=== PATIENT | female | born 1955 | race Caucasian/White ===

== ENCOUNTER 2017-05-31 18:01 | Inpatient (IN) | payer OTHER ==
--- OUTSIDE RECORDS SUMMARY | 2017-05-31 18:03 | XMS REPORT | Clinical Summary ---
:1955 Author Organization [facility] Address [address] [place] [address] Phone Care Team Providers Name Role Phone Unavailable Primary Care Provider Unavailable Allergies Active Allergy Reactions Severity Noted Date Comments Salicylates 08/22/2014 Acetaminophen Other (See Comments) 03/28/2017 toxicity Current Medications Prescription Sig. Disp. Refills Start Date End Date Status pantoprazole Take 40 mg by Active (PROTONIX) 40 MG mouth daily. tablet zolpidem (AMBIEN) Take 10 mg by Active 10 mg tablet mouth every night as needed for Insomnia . methadone Take 2.5 mg by Active (DOLOPHINE) 5 MG mouth every 6 tablet (six) hours . clonazePAM Take 1 tablet 30 tablet 0 03/29/2017 Active (KLONOPIN) 0.5 MG (0.5 mg total) tablet by mouth daily as needed for Anxiety. Max Daily Amount: 0.5 mg gabapentin Take 600 mg by 03/29/2017 Discontinued (NEURONTIN) 600 MG mouth 2 (two) tablet times daily. divalproex Take 125 mg by 03/29/2017 Discontinued (DEPAKOTE) 125 MG mouth 2 (two) EC tablet times daily. citalopram (CELEXA) Take 1 tablet 30 tablet 1 10/18/2015 10/17/2016 20 MG tablet (20 mg total) by mouth daily. clonazePAM Take 2 mg by 03/29/2017 Discontinued (KLONOPIN) 2 MG mouth 2 (two) tablet times daily as needed for Anxiety. Active Problems Problem Noted Date Acetaminophen toxicity 03/28/2017 Abnormal liver enzymes 03/28/2017 Acute cystitis without hematuria 03/28/2017 Abdominal pain, RUQ 01/26/2016 Anemia 01/26/2016 UTI (urinary tract infection) 01/26/2016 Colon cancer (HCC) Acid reflux Depression Encounters Date Type Specialty Care Team Description 04/03/2017 Telephone Hepatology Criselda Jones Results MD Sunita MPH 03/28/2017 - Hospital Encounter General Internal Tarsha Aguilera Abnormal liver 03/29/2017 Medicine MD Amalia enzymes;Toxic Sundeep Pinzon, effect of Frank Bill Allison accidental or MD April unintentional, initial encounter;Malignant neoplasm of colon, unspecified part of colon (HCC);Chronic pain syndrome;Abnormal liver function tests;Coagulopathy (HCC);Thrombocytope ivan (HCC);Immunity status testing;Other chronic pain;Immune to hepatitis A after 05/30/2016 Family History Medical History Relation Name Comments Cancer Mother Relation Name Status Comments Mother Social History Tobacco Use Types Packs/Day Years Used Date Never Smoker Smokeless Tobacco: Never Used Alcohol Use Drinks/Week oz/Week Comments No Sex Assigned at Date Recorded Not on file Last Filed Vital Signs Vital Sign Reading Time Taken Blood Pressure 112/53 03/29/2017 11:23 AM INSURANCE INSTRUCTOR Pulse 96 03/29/2017 11:23 AM INSURANCE INSTRUCTOR Temperature 36.6 C (97.9 F) 03/29/2017 11:23 AM INSURANCE INSTRUCTOR Respiratory Rate 18 03/29/2017 11:23 AM INSURANCE INSTRUCTOR Oxygen Saturation 97% 03/29/2017 11:23 AM INSURANCE INSTRUCTOR Inhaled Oxygen Concentration - - Weight 50.5 kg (111 lb 5.3 oz) 03/28/2017 1:33 AM INSURANCE INSTRUCTOR Height 160 cm (5' 3") 03/28/2017 1:33 AM INSURANCE INSTRUCTOR Body Mass Index 19.72 03/28/2017 1:33 AM INSURANCE INSTRUCTOR Plan of Treatment Health Maintenance Due Date Last Done Comments INFLUENZA VACCINE 11/25/2016 Results Calcium, Ionized (03/29/2017 7:56 AM)Only the most recent of2 resultswithin the time period is included. Component Value Ref Range Calcium, Ion 1.12 1.12 - 1.27 mmol/L pH, Blood 7.33 Specimen Performing Laboratory Blood - Line, Venous [facility] [address] [address] CBC with platelet count + automated diff (03/29/2017 7:56 AM)Only the most recent of3 resultswithin the time period is included. Component Value Ref Range WBC 3.7 3.5 - 10.5 K/L RBC 3.68 (L) 3.93 - 5.22 M/L Hemoglobin 9.6 (L) 11.2 - 15.7 GM/DL Hematocrit 29.9 (L) 34.1 - 44.9 % MCV 81.3 79.4 - 94.8 fL MCH 26.1 25.6 - 32.2 pg MCHC 32.1 (L) 32.2 - 35.5 GM/DL RDW 15.1 (H) 11.7 - 14.4 % Platelets 129 (L) 150 - 450 K/CU MM MPV 10.4 9.4 - 12.3 fL nRBC 0 0 - 0 /100 WBC % Neutros 66 % % Lymphs 17 % % Monos 10 % % Eos 6 % % Baso 1 % # Neutros 2.43 1.56 - 6.13 K/L # Lymphs 0.62 (L) 1.18 - 3.74 K/L # Monos 0.35 0.24 - 0.36 K/L # Eos 0.22 0.04 - 0.36 K/L # Baso 0.02 0.01 - 0.08 K/L Immature Granulocytes-Relative 1 0 - 1 % Specimen Performing Laboratory Blood - Line, Venous [address] [address] Prothrombin time/INR (03/29/2017 7:56 AM)Only the most recent of3 resultswithin the time period is included. Component Value Ref Range Protime 18.4 (H) 11.7 - 14.7 seconds INR 1.5 <=5.9 Specimen Performing Laboratory Blood - Line, Venous [address] [address] Narrative RECOMMENDED COUMADIN/WARFARIN INR THERAPY RANGES STANDARD DOSE: 2.0 - 3.0 Includes: PROPHYLAXIS for venous thrombosis, systemic embolization; TREATMENT for venous thrombosis and/or pulmonary embolus. HIGH RISK: Target INR is 2.5-3.5 for patients with mechanical heart valves. CBC with platelet count + automated diff (03/29/2017 7:56 AM)Only the most recent of3 resultswithin the time period is included. Specimen Performing Laboratory Blood Narrative The following orders were created for panel order CBC with platelet count + automated diff. Procedure Abnormality Status --------- ------ CBC with platelet count ...[[id number]]AbnormalFinal result Please view results for these tests on the individual orders. Phosphorus (03/29/2017 7:56 AM)Only the most recent of3 resultswithin the time period is included. Component Value Ref Range Phosphorus 2.4 2.3 - 4.7 mg/dL Specimen Performing Laboratory Blood - Line, Venous [address] [address] Magnesium (03/29/2017 7:56 AM)Only the most recent of2 resultswithin the time period is included. Component Value Ref Range Magnesium 1.7 1.6 - 2.6 mg/dL Specimen Performing Laboratory Blood - Line, Venous [address] [address] Hepatic function panel (03/29/2017 7:56 AM)Only the most recent of3 resultswithin the time period is included. Component Value Ref Range Protein, Total 5.1 (L) 6.0 - 8.3 gm/dL Albumin 2.8 (L) 3.5 - 5.0 g/dL Total Bilirubin 2.6 (H) 0.2 - 1.2 mg/dL Bilirubin, Direct 1.6 (H) 0.1 - 0.5 mg/dL Alkaline Phosphatase 100 40 - 150 U/L AST 274 (H) 5 - 34 U/L ALT 3184 (H) 6 - 55 U/L Specimen Performing Laboratory Blood - Line, Venous [address] [address] Basic Metabolic Panel (03/29/2017 7:56 AM)Only the most recent of3 resultswithin the time period is included. Component Value Ref Range Sodium 142 136 - 145 meq/L Potassium 3.3 (L) 3.5 - 5.1 meq/L Chloride 115 (H) 98 - 107 meq/L CO2 21 (L) 22 - 29 meq/L BUN 7 7 - 21 mg/dL Creatinine 0.61 0.57 - 1.25 mg/dL Glucose 97 70 - 105 mg/dL Calcium 8.1 (L) 8.4 - 10.2 mg/dL EGFR 99Comment: ESTIMATED GFR IS NOT ACCURATE mL/min/1.73 sq m CREATININE CLEARANCE IN PREDICTING GLOMERULAR FILTRATION RATE. ESTIMATED GFR IS NOT APPLICABLE FOR DIALYSIS PATIENTS. Specimen Performing Laboratory Blood - Line, Venous [address] [address] Varicella zoster PCR, qualitative (03/29/2017 7:18 AM) Component Value Ref Range Source-Body Site WHOLE BLOOD VZV DNA,Qual.PCR NOT DETECTED Comment: REFERENCE RANGE: NOT DETECTED This test was developed and its analytical performance characteristics have been determined by [facility]. It has not been cleared or approved by FDA. This assay has been validated pursuant to the CLIA regulations and is used for clinical purposes. Specimen Performing Laboratory Blood - Vein [facility] [address] [place] [address] Narrative Performing Lab *[facility] [address] [place] [address] H Yrn Mccarthy MD Ammonia (03/29/2017 5:20 AM) Component Value Ref Range Ammonia 75 (H) 18 - 72 mol/L Specimen Performing Laboratory Blood [address] [address] Blood culture (03/28/2017 11:01 PM)Only the most recent of2 resultswithin the time period is included. Component Value Ref Range Result No growth in 5 days Specimen Performing Laboratory Blood - Arm, Right [address] [address] US doppler (03/28/2017 10:35 PM) Specimen Performing Laboratory GE RIS Narrative FINAL REPORT U/S, ABDOMINAL, COMPLETE INDICATION: ELEVATED LIVER ENZYMES COMPARISON: None TECHNIQUE: Real-time ruelas-scale transabdominal and color and spectral Doppler ultrasound. FINDINGS: Visualized portion of the pancreas is normal. Cirrhotic liver. No discrete liver mass. Normal caliber CBD at 4 mm. Gallbladder wall thickening and pericholecystic fluid, nonspecific in the setting of portal hypertension. Visualized portions of the kidneys are unremarkable without obvious hydronephrosis. Spleen is enlarged at 13 cm. Visualized portion of the aorta is unremarkable. Color and Spectral imaging: Portal veins demonstrate normal directional flow and waveform. Hepatic artery demonstrate normal directional flow and waveform. Hepatic veins and IVC appear patent and unremarkable. Splenic vein demonstrates normal directional flow and waveform. IMPRESSION: Cirrhosis and portal hypertension.. Signed: Miguel Plaza MD Report Verified Date/Time:04/03/2017 09:20:30 Reading Location: [facility] B1 C013X Ortho Consult Reading Room Procedure Note Interface, External Ris In - 04/03/2017 9:20 AM INSURANCE INSTRUCTOR FINAL REPORT U/S, ABDOMINAL, COMPLETE INDICATION: ELEVATED LIVER ENZYMES COMPARISON: None TECHNIQUE: Real-time ruelas-scale transabdominal and color and spectral Doppler ultrasound. FINDINGS: Visualized portion of the pancreas is normal. Cirrhotic liver. No discrete liver mass. Normal caliber CBD at 4 mm. Gallbladder wall thickening and pericholecystic fluid, nonspecific in the setting of portal hypertension. Visualized portions of the kidneys are unremarkable without obvious hydronephrosis. Spleen is enlarged at 13 cm. Visualized portion of the aorta is unremarkable. Color and Spectral imaging: Portal veins demonstrate normal directional flow and waveform. Hepatic artery demonstrate normal directional flow and waveform. Hepatic veins and IVC appear patent and unremarkable. Splenic vein demonstrates normal directional flow and waveform. IMPRESSION: Cirrhosis and portal hypertension.. Signed: Miguel Plaza MD Report Verified Date/Time: 04/03/2017 09:20:30 Reading Location: [facility] C013X Ortho Consult Reading Room abdomen complete (03/28/2017 10:35 PM) Specimen Performing Laboratory [facility] Narrative FINAL REPORT U/S, ABDOMINAL, COMPLETE INDICATION: ELEVATED LIVER ENZYMES COMPARISON: None TECHNIQUE: Real-time ruelas-scale transabdominal and color and spectral Doppler ultrasound. FINDINGS: Visualized portion of the pancreas is normal. Cirrhotic liver. No discrete liver mass. Normal caliber CBD at 4 mm. Gallbladder wall thickening and pericholecystic fluid, nonspecific in the setting of portal hypertension. Visualized portions of the kidneys are unremarkable without obvious hydronephrosis. Spleen is enlarged at 13 cm. Visualized portion of the aorta is unremarkable. Color and Spectral imaging: Portal veins demonstrate normal directional flow and waveform. Hepatic artery demonstrate normal directional flow and waveform. Hepatic veins and IVC appear patent and unremarkable. Splenic vein demonstrates normal directional flow and waveform. IMPRESSION: Cirrhosis and portal hypertension.. Signed: Miguel Plaza MD Report Verified Date/Time:03/29/2017 00:32:39 Reading Location: [facility] B1 C013X Ortho Consult Reading Room Procedure Note Interface, External Ris In - 03/29/2017 12:34 AM INSURANCE INSTRUCTOR FINAL REPORT U/S, ABDOMINAL, COMPLETE INDICATION: ELEVATED LIVER ENZYMES COMPARISON: None TECHNIQUE: Real-time ruelas-scale transabdominal and color and spectral Doppler ultrasound. FINDINGS: Visualized portion of the pancreas is normal. Cirrhotic liver. No discrete liver mass. Normal caliber CBD at 4 mm. Gallbladder wall thickening and pericholecystic fluid, nonspecific in the setting of portal hypertension. Visualized portions of the kidneys are unremarkable without obvious hydronephrosis. Spleen is enlarged at 13 cm. Visualized portion of the aorta is unremarkable. Color and Spectral imaging: Portal veins demonstrate normal directional flow and waveform. Hepatic artery demonstrate normal directional flow and waveform. Hepatic veins and IVC appear patent and unremarkable. Splenic vein demonstrates normal directional flow and waveform. IMPRESSION: Cirrhosis and portal hypertension.. Signed: Miguel Plaza MD Report Verified Date/Time: 03/29/2017 00:32:39 Reading Location: [facility] B1 C013X Ortho Consult Reading Room Drug screen, urine, transplant (03/28/2017 6:49 PM) Specimen Performing Laboratory Urine - Urine, Urostomy [facility] [id number] Rapid drug screen, urine (03/28/2017 6:49 PM) Component Value Ref Range Barbiturate Screen Negative Negative Benzodiazepine Screen Negative Negative Cocaine (Metab.) Screen Negative Negative Methadone Screen Negative Negative Opiate Screen Negative Negative Cannabinoid Screen Negative Negative Amph/Methamph Screen Negative Negative Phencyclidine Screen Negative Negative Oxycodone Screen Negative Negative Specimen Performing Laboratory Urine - Urine, Urostomy [address] [address] Narrative DRUGCUTOFF CONC. Cocaine 300 ng/mL Pvbieavurwo94 ng/mL Sjhywzjnjxbiur741 ng/mL Barbiturate 200 ng/mL Ffgabhfqzfgod51 ng/mL Zprcpj081 ng/mL Methadone 300 ng/mL Amphetamine/ 1000 ng/mL Methamphetamine Oxycodone 300 ng/mL This assay provides an unconfirmed qualitative test result for the clinical management of patients in emergency situations. Chain of custody not maintained. Some lvnm-gnj-vrjlkkr medications, as well as adulterants, may cause inaccurate results. Clinical correlation should be applied. A more comprehensive drug screen or confirmation of a detected drug may be performed upon request. Anti-Nuclear Antibody (UDAY) (03/28/2017 4:24 PM) Component Value Ref Range UDAY Negative Negative Specimen Performing Laboratory Blood [facility] [address] [address] Alpha-1 antitrypsin Mutation Analysis (03/28/2017 4:21 PM) Component Value Ref Range A1 Antitrypsin Mut SEE BELOW Comment: RESULT: NO MUTATION DETECTED Interpretation: DNA testing indicates that this individual is negative for the PI*Z and PI*S alleles in the qjybt-2-qofvudedxkw (PI) gene (genotype PI*M/PI*M). This negative result does not rule out the presence of other mutations within the PI gene or other causes of zcskr-0-ukbdysamqgw deficiency. Therefore, these results should be interpreted in the context of the individual's clinical presentation, and other laboratory tests such as measurement of serum peuoh-9-pywmwcrqdou levels. Laboratory results and submitted clinical information reviewed by Jose Juan Mercer, Ph.D., [facility]. Spftv-4-wfpqqytpvyl deficiency is a relatively common autosomal recessive condition. The two most common deficiency alleles in the hskrk-5-fesnyzvooyq gene (protease inhibitor locus, PI) are designated PI*Z and PI*S, and the normal allele is designated PI*M. The PI*Z/PI*Z, PI*S/PI*Z, and PI*S/PI*S genotypes associated with decreased serum PI levels that are equivalent to approximately 10-20%, 35-40%, and 50-60% of normal, respectively. The PI*Z/PI*Z and PI*S/PI*Z genotypes are reported to be associated with an increased risk of liver disease in childhood, and chronic obstructive pulmonary disease (COPD) and emphysema in adult life. The PI*M/PI*Z, and PI*M/PI*S genotypes are also associated with decreased serum PI levels but these levels, and the PI levels associated with the PI*S/PI*S genotype, are apparently adequate to protect the lungs in the vast majority of individuals. Individuals with the PI*M/PI*Z genotype may have decreased pulmonary function, and may be at increased risk for COPD, especially if they smoke. It should be noted that serum wpdkb-0-hkefspeznpp levels can be induced by a wide variety of conditions that include , infection, numerous inflammatory conditions, cancer, and liver disease. Levels of xqumg-6-jhfowpqqygp may be reduced by other conditions. Therefore, immunological and functional determinations of serum shmul-5-xgfmdtugfaz levels may not correlate with the individual's PI genotype. The PI*Z, PI*S, and PI*M alleles are detected by multiplex polymerase chain reaction (PCR) amplification of specific regions of the PI gene, followed by restriction enzyme digestion and capillary electrophoresis. This assay does not test for the presence of other mutations within the rhteo-9-sngmdnfasbm gene or non-genetic causes of gslok-7-czkyuepajmp deficiency. Since genetic variation and other factors can affect the accuracy of direct mutation testing, these results should be interpreted in light of clinical and familial data. This test was developed and its analytical performance characteristics have been determined by [facility]. It has not been cleared or approved by FDA. This assay has been validated pursuant to the CLIA regulations and is used for clinical purposes. Clinical Indication NOT GIVEN Referring Physician NOT GIVEN Specimen Performing Laboratory Blood [facility] [address] [address] Narrative Performing Lab [facility] [address] [address] Yrn Bear MD, PhD Fibrinogen (03/28/2017 4:21 PM)Only the most recent of2 resultswithin the time period is included. Component Value Ref Range Fibrinogen 297 225 - 434 mg/dl Specimen Performing Laboratory Blood [address] [address] Factor 5 activity (bleeding risk) (03/28/2017 4:21 PM) Component Value Ref Range Factor V Activity 42.0 (L) 60.0 - 150.0 % Specimen Performing Laboratory Blood [address] [address] Varicella zoster antibody, IgM (03/28/2017 4:21 PM) Component Value Ref Range VZV Ab IgM, EIA 0.38 Comment: Reference range: < or=0.90 Interpretive criteria: 0.00-0.90 Negative 0.91-1.09 Equivocal > or=1.10 Positive Results from any one IgM assay should not be used as a sole determinant of a current or recent infection. Because an IgM test can yield false positive results and low levels of IgM antibody may persist for more than 12 months post infection, reliance on a single test result could be misleading. If an acute infection is suspected, consider obtaining a new specimen and submit for both IgG and IgM testing in two or more weeks. Specimen Performing Laboratory Blood [facility] [address] [address] Narrative Performing Lab *[facility] [address] [place] [phone] Avelino Mccarthy MD Gamma Glutamyl Transferase (GGT) (03/28/2017 4:21 PM) Component Value Ref Range GGT 85 (H) 9 - 64 U/L Specimen Performing Laboratory Blood [address] [address] HSV PCR (03/28/2017 4:20 PM) Component Value Ref Range Scan Result Specimen Performing Laboratory Blood - Line, Venous [facility] [address] [place] [address] EBV Viral Load (03/28/2017 4:19 PM) Component Value Ref Range EBV Viral Load Negative or below the linear range of the assay (<500 copies/mL) Specimen Performing Laboratory Blood [address] [address] Narrative This assay was performed by real-time PCR for the detection of the Tomy- Warren virus (EBV) gene EBNA-1.The test is composed of (1) DNA extraction from patient specimen, and (2) real-time PCR amplification and detection with EBNA-1- specific primers and probes. A well-conserved region of the EBNA-1 gene is targeted, along with an internal control sequence used to confirm PCR amplification. Asymptomatic carriers and viral genetic variation, among other factors, can affect the accuracy of nucleic acid testing; therefore, results should be interpreted in light of clinical data. This test was developed and its performance characteristics determined by the [facility] Pathology Department, Section of Molecular Pathology. It has not been cleared or approved by the U.S. Food and Drug Administration (FDA), since FDA approval is not required for clinical use of the test. Validation was done as required by The Clinical Laboratory Improvement Amendments of 1988. CMV PCR, quantitative (03/28/2017 4:19 PM) Component Value Ref Range CMV DNA Viral Load Negative or below the linear range of the assay (<375 copies/mL) Specimen Performing Laboratory Blood [address] Cytomegalovirus (CMV) infection can cause significant disease in immunosuppressed patients. However, it is common for CMV to manifest as a limited infection which is of no clinical significance in immunosuppressed patients or in healthy individuals. Viral load measurements are helpful to identify clinical CMV infection and to guide the pre-emptive management of antiviral therapy.For treatment of CMV infection due to reactivation in transplant recipients, a threshold between 4,000 and 5, 000 copies/mL is suggested.For treatment of primary CMV infection, a lower threshold can be used. CMV infection may also be monitored using weekly serial measurements. Serial measurements of CMV DNA viral load can be evaluated by identifying a 10-fold change, as well as assessing the CMV DNA viral load and the clinical context for each patient. The plasma CMV DNA viral load was detected using quantitative polymerase chain reaction and fluorescent monitoring of a specific hybridized probe. Genetic variation and other factors can affect the accuracy of nucleic acid testing. Therefore, the results should be interpreted in light of clinical data. A negative result may not exclude the presence of CMV disease. This test was developed and its performance characteristics determined by the [facility] Pathology Department, Section of Molecular Pathology. It has not been cleared or approved by the U.S. Food and Drug Administration (FDA), since FDA approval is not required for clinical use of the test. Validation was done as required by The Clinical Laboratory Improvement Amendments of 1988. Hepatitis C PCR, Quantitative (03/28/2017 4:19 PM) Component Value Ref Range HCV PCR, Quantitative HCV RNA not detected HCV RNA not detected Specimen Performing Laboratory Blood [address] [address] [facility] This test uses a Real-Time Polymerase Chain Reaction (RT-PCR) methodology and was performed using JUNG Ampliprep/JUNG TaqMan HCV test kit version 2.0 ( [employer] Reportable range for this assay is 15 - 100,000,000 IU per mL (1.18 - 8.00 Log IU/mL). This test uses a Real-Time Polymerase Chain Reaction (RT-PCR) methodology and was performed using JUNG Ampliprep/JUNG TaqMan HCV test kit version 2.0 ( [employer] Reportable range for this assay is 15 - 100,000,000 IU per mL (1.18 - 8.00 Log IU/mL). Anti-Mitochondrial Ab, reflex to titer (03/28/2017 4:17 PM) Component Value Ref Range Scan Result Specimen Performing Laboratory Blood - Central Venous Line [facility] [id number] [place] [address] HIV-1 Antigen with HIV-1/2 Antibody (03/28/2017 4:17 PM) Component Value Ref Range HIV-1 Antigen with HIV 1&2 Antibody Nonreactive Nonreactive Specimen Performing Laboratory Blood - Central Venous Line [address] [address] Hepatitis B Panel (03/28/2017 4:17 PM) Component Value Ref Range Hep B Core Total Ab Nonreactive Nonreactive Hep B S Ab <8.0 <8.0 mIU/mL hepatitis B Surface Ag Nonreactive Nonreactive Specimen Performing Laboratory Blood - Central Venous Line [address] [address] Hepatitis A Panel (03/28/2017 4:17 PM) Component Value Ref Range Hep A IgM Nonreactive Nonreactive Hep A IgG Reactive (A) Nonreactive Specimen Performing Laboratory Blood - Central Venous Line [address] [address] Hepatitis C antibody (03/28/2017 4:17 PM)Only the most recent of2 resultswithin the time period is included. Component Value Ref Range Hepatitis C Ab Nonreactive Nonreactive Specimen Performing Laboratory Blood - Central Venous Line [address] [address] Cytomegalovirus antibody, IgM (03/28/2017 4:17 PM) Component Value Ref Range CMV IgM Negative Specimen Performing Laboratory Blood - Central Venous Line [facility] [address] [place] [address] Actin (Smooth Muscle) Antibody, IgG (03/28/2017 4:17 PM) Component Value Ref Range Anti-Smooth Muscle Ab <20 See Note: U Comment: Reference Range: <20 NEGATIVE > OR=20 POSITIVE Antibodies recognizing actin are the main component of smooth muscle antibodies associated with autoimmune liver disease. Actin antibodies are found in approximately 75% of patients with autoimmune hepatitis (AIH) type 1, approximately 65% of patients with autoimmune cholangitis, approximately 30% of patients with primary biliary cirrhosis, and approximately 2% of healthy people. High values are closely correlated with AIH type 1. Specimen Performing Laboratory Blood - Central Venous Line [facility] [address] [address] Narrative Performing Lab [facility] [address] [address] Yrn Bear MD, PhD Ceruloplasmin (03/28/2017 4:17 PM) Component Value Ref Range Ceruloplasmin 21 18 - 53 mg/dL Comment: Adults:Males: 18-36 mg/dL Females: 18-53 mg/dL Pediatrics:Males (mg/dL)Females (mg/dL) 0-30 Days 8-25 3-28 31 Days-11 Month -15-43 1-3 [id number] 4-6 [id number] 7-9 [id number] 10-12 [id number] 13-15 [id number] 16-18 [id number] The pediatric ranges are derived from the following criteria: Fantasma ROBERTSON, Trae HENRY, Daylin Pool et al Pediatric reference ranges for [id number] and ceruloplasmin. Clin. Chem 1997; 43:S1999 Pediatric Reference Ranges, 2nd., [place] Fantasmaet al. editors. [employer], [place], [place] 1997. Specimen Performing Laboratory Blood - Central Venous Line [facility] [address] [place] [address] Narrative Performing Lab *SPL [facility], [address] [place] [address] Yrn Bear MD, PhD Herpes virus antibody, IgM (03/28/2017 4:17 PM) Component Value Ref Range Herpes Virus IGM Negative Specimen Performing Laboratory Blood - Central Venous Line [address] [address] EBV-VCA antibody, IgM (03/28/2017 4:17 PM) Component Value Ref Range EBV VCA IgM Negative Specimen Performing Laboratory Blood - Central Venous Line [address] [address] EBV-VCA antibody, IgG (03/28/2017 4:17 PM) Component Value Ref Range EBV VCA IgG Positive Specimen Performing Laboratory Blood - Central Venous Line [address] [address] Herpes virus antibody, IgG (03/28/2017 4:17 PM) Component Value Ref Range Herpes Virus IGG Positive Specimen Performing Laboratory Blood - Central Venous Line [address] [address] Narrative HSV IGG 1=POSITIVE HSV IGG 2=POSITIVE Cytomegalovirus antibody, IgG (03/28/2017 4:17 PM) Component Value Ref Range CMV IgG Positive Specimen Performing Laboratory Blood - Central Venous Line [address] [address] Varicella zoster antibody, IgG (03/28/2017 4:17 PM) Component Value Ref Range Varicella IgG 1.6 Al Specimen Performing Laboratory Blood - Central Venous Line [address] [address] Narrative VARICELLA ZOSTER RESULT INTERPRETATIONS: <=0.8 AlNonreactive:Presumed non-immune to VZV 0.9-1.0 AlEquivocal >=1.1 AlReactive:Presumed immune to VZV Haptoglobin (03/28/2017 4:17 PM) Component Value Ref Range Haptoglobin 49 14 - 258 mg/dL Specimen Performing Laboratory Blood - Central Venous Line [address] [address] Immunoglobulin G (IgG) (03/28/2017 4:17 PM) Component Value Ref Range IgG 896 540 - 1822 mg/dL Specimen Performing Laboratory Blood - Central Venous Line [address] [address] Ethanol (03/28/2017 4:17 PM) Component Value Ref Range Ethanol Lvl <10 <=10 mg/dL Specimen Performing Laboratory Blood - Central Venous Line [address] [address] Salicylate level (03/28/2017 4:17 PM) Component Value Ref Range Salicylate Lvl <5.0 (L) 15.0 - 30.0 mg/dL Specimen Performing Laboratory Blood - Central Venous Line [address] [address] Narrative Therapeutic Range: 15.0-30.0 mg/dL Toxic: >30.0 mg/dL Lethal:>70.0 mg/dL Urinalysis w/Microscopic + Reflex to Culture (03/28/2017 6:54 AM) Component Value Ref Range Color, UA Yellow Clarity, UA Hazy Specific [place], UA 1.010 1.001 - 1.035 pH, UA 6.5 5.0 - 8.0 Protein, UA 30 mg/dL (A) Negative Glucose, UA Negative Negative Ketones, UA Negative Negative Bilirubin, UA Negative Negative Blood, UA Negative Negative Nitrite, UA Negative Negative Leukocytes, UA Negative Negative Urobilinogen, UA 0.2 0.2 - 1.0 mg/dL RBC, UA 0 /HPF WBC, UA 27 /HPF Bacteria, UA Many Specimen Source Specimen Performing Laboratory Urine - Urine, Urostomy [address] [address] Urine culture (03/28/2017 6:54 AM) Component Value Ref Range Result See comment Specimen Performing Laboratory Urine - Urine, Urostomy [address] [address] Narrative >100,000 col/mL enteric organisms of >2 types. No further workup performed. Multiple organisms suggestive of colonization or contamination. Repeat collection recommended. Hepatitis A antibody, IgG (03/28/2017 3:05 AM) Component Value Ref Range Hep A IgG Reactive (A) Nonreactive Specimen Performing Laboratory Blood [address] [address] Alpha fetoprotein (AFP), tumor marker (03/28/2017 3:05 AM) Component Value Ref Range Alpha-Fetoprotein 12.3 (H) <10.0 ng/mL Specimen Performing Laboratory Blood [address] [address] Hepatitis B surface antigen (03/28/2017 3:05 AM) Component Value Ref Range hepatitis B Surface Ag Nonreactive Nonreactive Specimen Performing Laboratory Blood [address] [address] Ferritin (03/28/2017 3:05 AM) Component Value Ref Range Ferritin 966 (H) 5 - 275 ng/mL Specimen Performing Laboratory Blood [address] [address] Acetaminophen level (03/28/2017 3:05 AM) Component Value Ref Range Acetaminophen Level <5.7 (L) 10.0 - 30.0 ug/mL Specimen Performing Laboratory Blood [address] [address] Narrative Therapeutic Range: 10.0-30.0 g/mL Toxic Levels:>200.0 g/mL after 05/30/2016
--- OUTSIDE RECORDS SUMMARY | 2017-05-31 18:04 | XMS REPORT ---
:1955 [facility] [address] [place] [address] Care Team Providers Name Role Phone SCOTT VILLAGOMEZ Unavailable Unavailable Problems This patient has no known problems. Allergies, Adverse Reactions, Alerts This patient has no known allergies or adverse reactions. Medications This patient has no known medications. Results Test Description Test Time Test Comments Text Results Atomic Results Result Comments ANTI-MITOCHONDRIAL AB, REFLEX TO TITER 2017-04-09 12:08:00 Test Item Value Reference Range Comments SCAN RESULT (test gnjw=[id number]) HERPES VIRUS ANTIBODY, [id number] 10:39:00 Test Item Value Reference Range Comments HERPES VIRUS IGM (BEAKER) (test fwom=9034) Negative U/S, DUPLEX, [id number] 09:20:00Reason for exam:->ELEVATED LIVER ENZYMESFINAL REPORT U/S, ABDOMINAL, COMPLETE INDICATION: ELEVATED LIVER ENZYMES COMPARISON: None TECHNIQUE: Real-time ruelas-scale transabdominal and color and spectral Doppler ultrasound. FINDINGS:Visualized portion of the pancreas is normal.Cirrhotic liver. No discrete liver mass.Normal caliber CBD at 4 mm.Gallbladder wall thickening and pericholecystic fluid, nonspecific in the setting of portal hypertension.Visualized portions of the kidneys are unremarkable without obvious hydronephrosis.Spleen is enlarged at 13 cm.Visualized portion of the aorta is unremarkable. Color and Spectral imaging:Portal veins demonstrate normal directional flow and waveform.Hepatic artery demonstrate normal directional flow and waveform.Hepatic veins and IVC appear patent and unremarkable.Splenic veindemonstrates normal directional flow and waveform. IMPRESSION: Cirrhosis and portal hypertension.. Signed: Miguel Plaza MDReport Verified Date/Time: 04/03/2017 09:20:30 Reading Location: [facility] [id number] Ortho Consult Reading Room BLOOD [id number] 05:01:00 Test Item Value Reference Range Comments CULTURE (BEAKER) (test rvbf=9570) No growth in 5 days BLOOD [id number] 23:00:00 Test Item Value Reference Range Comments CULTURE (BEAKER) (test xkoy=5900) No growth in 5 days MISCELLANEOUS LAB [id number] 07:24:00 Test Item Value Reference Range Comments SCAN RESULT (test smwe=[id number]) CYTOMEGALOVIRUS ANTIBODY, [id number] 14:40:00 Test Item Value Reference Range Comments CYTOMEGALOVIRUS IGG ANTIBODY (BEAKER) (test Positive pjaf=558) CYTOMEGALOVIRUS ANTIBODY, [id number] 14:40:00 Test Item Value Reference Range Comments CYTOMEGALOVIRUS IGM ANTIBODY (BEAKER) (test Negative kebk=704) EBV-VCA ANTIBODY, [id number] 14:40:00 Test Item Value Reference Range Comments CARMEN-WARREN VCA IGG (BEAKER) (test zbtr=970) Positive EBV-VCA ANTIBODY, [id number] 14:40:00 Test Item Value Reference Range Comments CARMEN-WARREN VCA IGM (BEAKER) (test rzpo=740) Negative HERPES VIRUS ANTIBODY, [id number] 14:40:00 Test Item Value Reference Range Comments HERPES VIRUS IGG (BEAKER) (test wwax=3345) Positive HSV IGG 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 IGG 2=POSITIVEVARICELLA ZOSTER ANTIBODY, [id number] 14: 32:00 Test Item Value Reference Range Comments VARICELLA ZOSTER IGG (AL) (BEAKER) (test rcla=5470) 1.6 Al VARICELLA ZOSTER RESULT INTERPRETATIONS: <=0.8 Al Nonreactive: Presumed non-immune to VZV 0.9-1.0 Al Equivocal >=1.1 Al Reactive: Presumed immune to VZVANTI-NUCLEAR ANTIBODY (UDAY)2017-03-30 14: 05:00 Test Item Value Reference Range Comments ANTI-NUCLEAR ANTIBODY (UDAY) (BEAKER) (test Negative Negative meru=817) HEPATITIS C PCR, [id number] 10:44:00 Test Item Value Reference Range Comments HCV RESULT COMPONENT (BEAKER) HCV RNA not detected HCV RNA not detected (test utkp=6986) This test uses a Real-Time Polymerase Chain Reaction (RT-PCR) methodology and was performed using JUNG Ampliprep/JUNG TaqMan HCV test kit version 2.0 ( [employer]).Reportable range for this assay is 15 - 100,000, 000 IU per mL (1.18 - 8.00 Log IU/mL).This test uses a Real-Time Polymerase Chain Reaction (RT-PCR) methodology and was performed using JUNG Ampliprep/ JUNG TaqMan HCV test kit version 2.0 ([employer]) .Reportable range for this assay is 15 - 100,000,000 IU per mL (1.18 - 8.00 Log IU/mL).EBV VIRAL [id number] 15:31:00 Test Item Value Reference Range Comments EBV VIRAL LOAD - NEGATIVE Negative or below the linear (BEAKER) (test cpnu=4599) range of the assay (<500 copies/mL) This assay was performed by real-time PCR for the detection of the Carmen-Warren virus (EBV) gene EBNA-1. The test is composed of (1) DNA extraction [...] should be interpreted in light of clinical data.This test was developedand its performance characteristics determined by the [facility] Pathology Department, Section of Molecular Pathology. It has not been cleared or approved by the U.S. Food and Drug Administration (FDA), since FDA approval is not required for clinical use of the test. Validation was doneas required by The Clinical Laboratory Improvement Amendments of 1988.CMV PCR, [id number] 15:27:00 Test Item Value Reference Range Comments CMV VIRAL LOAD - NEGATIVE Negative or below the linear (BEAKER) (test orlk=1407) range of the assay (<375 copies/mL) Cytomegalovirus (CMV) infection can cause significant disease in immunosuppressed patients. However,it is common for CMV to manifest as a limited infection which is of no clinical significance in immunosuppressed patients or in healthy individuals.Viral load measurements are helpful to identify clinical CMV infection and to guide the pre-emptive management of antiviral therapy. For treatment of CMVinfection due to reactivation in transplant recipients, a threshold between 4,000 and 5,000 copies/mL is suggested. For treatment of primary CMV infection, a lower threshold can be used.CMV infection may also be monitored using weekly serial measurements. Serial measurements of CMV DNA viral load canbe evaluated by identifying a 10- fold change, as well as assessing the CMV DNA viral load and the clinical context for each patient.The plasma CMV DNA viral load was detected using quantitative polymerase chain reaction and fluorescent monitoring of a specific hybridized probe. Genetic variation and other factors can affect the accuracy of nucleic acid testing. Therefore, the results should be interpreted in light of clinical data. A negative result may not exclude the presence of CMV disease.This test was developed and its performance characteristics determined by the [facility] Pathology Department, Section of Molecular Pathology. It has not been cleared or approved by the U.S. Food and Drug Administration (FDA), since FDA approval is not required for clinical use of the test. Validation was done as required by The Clinical Laboratory Improvement Amendments of 1988.FACTOR 5 ACTIVITY (BLEEDING RISK)2017-03-29 10:17 :00 Test Item Value Reference Range Comments FACTOR V ACTIVITY (BEAKER) (test jssc=657) 42.0 % 60.0-150.0 HEPATIC FUNCTION [id number] 10:09:00 Test Item Value Reference Range Comments TOTAL PROTEIN (BEAKER) (test rppe=840) 5.1 gm/dL 6.0-8.3 ALBUMIN (BEAKER) (test jmut=7992) 2.8 g/dL 3.5-5.0 BILIRUBIN TOTAL (BEAKER) (test dyjp=740) 2.6 mg/dL 0.2-1.2 BILIRUBIN DIRECT (BEAKER) (test xtqa=745) 1.6 mg/dL 0.1-0.5 ALKALINE PHOSPHATASE (BEAKER) (test wcbw=133) 100 U/L 40-150 AST (SGOT) (BEAKER) (test drmu=640) 274 U/L 5-34 ALT (SGPT) (BEAKER) (test vlxu=259) 3184 U/L 6-55 [id number] 09:24:00 Test Item Value Reference Range Comments PHOSPHORUS (BEAKER) (test enua=978) 2.4 mg/dL 2.3-4.7 [id number] 09:24:00 Test Item Value Reference Range Comments MAGNESIUM (BEAKER) (test yxyu=173) 1.7 mg/dL 1.6-2.6 BASIC METABOLIC [id number] 09:24:00 Test Item Value Reference Range Comments SODIUM (BEAKER) (test 142 meq/L 136-145 korw=192) POTASSIUM (BEAKER) (test 3.3 meq/L 3.5-5.1 fiyy=747) CHLORIDE (BEAKER) (test 115 meq/L 98-107 tiso=669) CO2 (BEAKER) (test 21 meq/L 22-29 pmgo=002) BLOOD UREA NITROGEN 7 mg/dL 7-21 (BEAKER) (test nnrz=949) CREATININE (BEAKER) (test 0.61 mg/dL 0.57-1.25 sejj=682) GLUCOSE RANDOM (BEAKER) 97 mg/dL 70-105 (test wsnb=386) CALCIUM (BEAKER) (test 8.1 mg/dL 8.4-10.2 eivi=224) EGFR (BEAKER) (test 99 mL/min/1.73 sq m ESTIMATED GFR IS NOT wfhw=5485) ACCURATE CREATININE CLEARANCE IN PREDICTING GLOMERULAR FILTRATION RATE. ESTIMATED GFR IS NOT APPLICABLE FOR DIALYSIS PATIENTS. PROTHROMBIN [id number] 09:19:00 Test Item Value Reference Range Comments PROTIME (BEAKER) (test kupa=350) 18.4 seconds 11.7-14.7 INR (BEAKER) (test xqzt=305) 1.5 <=5.9 RECOMMENDED COUMADIN/WARFARIN INR THERAPY RANGESSTANDARD DOSE: 2.0 - 3.0 Includes: PROPHYLAXIS forvenous thrombosis, systemic embolization; TREATMENT for venous thrombosis and/or pulmonary embolus.HIGH RISK: Target INR is 2.5-3.5 for patients with mechanical heart valves.CBC W/PLT COUNT & AUTO [id number] 08:58:00 Test Item Value Reference Range Comments WHITE BLOOD CELL COUNT (BEAKER) (test yawt=491) 3.7 K/ L 3.5-10.5 RED BLOOD CELL COUNT (BEAKER) (test ahji=675) 3.68 M/ L 3.93-5.22 HEMOGLOBIN (BEAKER) (test sphc=170) 9.6 GM/DL 11.2-15.7 HEMATOCRIT (BEAKER) (test grpm=024) 29.9 % 34.1-44.9 MEAN CORPUSCULAR VOLUME (BEAKER) (test rrsr=064) 81.3 fL 79.4-94.8 MEAN CORPUSCULAR HEMOGLOBIN (BEAKER) (test 26.1 pg 25.6-32.2 ekpu=950) MEAN CORPUSCULAR HEMOGLOBIN CONC (BEAKER) (test 32.1 GM/DL 32.2-35.5 jlqd=723) RED CELL DISTRIBUTION WIDTH (BEAKER) (test 15.1 % 11.7-14.4 qgeq=031) PLATELET COUNT (BEAKER) (test udic=178) 129 K/CU MM 150-450 MEAN PLATELET VOLUME (BEAKER) (test hbdy=914) 10.4 fL 9.4-12.3 NUCLEATED RED BLOOD CELLS (BEAKER) (test 0 /100 WBC 0-0 wksw=015) NEUTROPHILS RELATIVE PERCENT (BEAKER) (test 66 % trgs=066) LYMPHOCYTES RELATIVE PERCENT (BEAKER) (test 17 % gbqc=803) MONOCYTES RELATIVE PERCENT (BEAKER) (test 10 % armc=177) EOSINOPHILS RELATIVE PERCENT (BEAKER) (test 6 % apjt=677) BASOPHILS RELATIVE PERCENT (BEAKER) (test 1 % zyiq=407) NEUTROPHILS ABSOLUTE COUNT (BEAKER) (test 2.43 K/ L 1.56-6.13 vtrr=722) LYMPHOCYTES ABSOLUTE COUNT (BEAKER) (test 0.62 K/ L 1.18-3.74 lrra=616) MONOCYTES ABSOLUTE COUNT (BEAKER) (test 0.35 K/ L 0.24-0.36 fsba=545) EOSINOPHILS ABSOLUTE COUNT (BEAKER) (test 0.22 K/ L 0.04-0.36 dida=794) BASOPHILS ABSOLUTE COUNT (BEAKER) (test 0.02 K/ L 0.01-0.08 aqjl=905) IMMATURE GRANULOCYTES-RELATIVE PERCENT (BEAKER) 1 % 0-1 (test mczv=2098) CALCIUM, [id number] 08:46:00 Test Item Value Reference Range Comments CALCIUM IONIZED (BEAKER) (test cdeg=698) 1.12 mmol/L 1.12-1.27 PH, BLOOD (BEAKER) (test etdv=9227) 7.33 [id number] 05:53:00 Test Item Value Reference Range Comments AMMONIA (BEAKER) (test ajwe=580) 75 mol/L 18-72 HEPATIC FUNCTION [id number] 00:34:00 Test Item Value Reference Range Comments TOTAL PROTEIN (BEAKER) (test sgmc=267) 4.8 gm/dL 6.0-8.3 ALBUMIN (BEAKER) (test kuae=8153) 2.7 g/dL 3.5-5.0 BILIRUBIN TOTAL (BEAKER) (test mjmh=924) 3.0 mg/dL 0.2-1.2 BILIRUBIN DIRECT (BEAKER) (test aeau=420) 2.1 mg/dL 0.1-0.5 ALKALINE PHOSPHATASE (BEAKER) (test ymzt=346) 98 U/L 40-150 AST (SGOT) (BEAKER) (test lbrx=361) 412 U/L 5-34 ALT (SGPT) (BEAKER) (test nntd=876) 3241 U/L 6-55 BASIC METABOLIC [id number] 00:32:00 Test Item Value Reference Range Comments SODIUM (BEAKER) (test 141 meq/L 136-145 xtad=451) POTASSIUM (BEAKER) (test 3.1 meq/L 3.5-5.1 cggx=653) CHLORIDE (BEAKER) (test 114 meq/L 98-107 aeue=554) CO2 (BEAKER) (test 18 meq/L 22-29 pxpi=390) BLOOD UREA NITROGEN 10 mg/dL 7-21 (BEAKER) (test xiln=307) CREATININE (BEAKER) (test 0.73 mg/dL 0.57-1.25 xwrd=591) GLUCOSE RANDOM (BEAKER) 139 mg/dL 70-105 (test rhtu=404) CALCIUM (BEAKER) (test 7.8 mg/dL 8.4-10.2 gvsw=888) EGFR (BEAKER) (test 81 mL/min/1.73 sq m ESTIMATED GFR IS NOT ivzd=0126) ACCURATE CREATININE CLEARANCE IN PREDICTING GLOMERULAR FILTRATION RATE. ESTIMATED GFR IS NOT APPLICABLE FOR DIALYSIS PATIENTS. U/S, ABDOMINAL, [id number] 00:32:00Reason for exam:->ELEVATED LIVER ENZYMESFINAL REPORT U/S, ABDOMINAL, COMPLETE INDICATION: ELEVATED LIVER ENZYMES COMPARISON: None TECHNIQUE: Real-time ruelas-scale transabdominal and color and spectral Doppler ultrasound. FINDINGS:Visualized portion of the pancreas is normal.Cirrhotic liver. No discrete liver mass.Normal caliber CBD at 4 mm.Gallbladder wall thickening and pericholecystic fluid, nonspecific in the setting of portal hypertension.Visualized portions of the kidneys are unremarkable without obvious hydronephrosis.Spleen is enlarged at 13 cm.Visualized portion of the aorta is unremarkable. Color and Spectral imaging:Portal veins demonstrate normal directional flow and waveform.Hepatic artery demonstrate normal directional flow and waveform.Hepatic veins and IVC appear patent and unremarkable.Splenic veindemonstrates normal directional flow and waveform. IMPRESSION: Cirrhosis and portal hypertension.. Signed: Miguel Plaza MDReport Verified Date/Time: 03/29/2017 00:32:39 Reading Location: [place] [id number] Ortho Consult Reading Room [id number] 00:12:00 Test Item Value Reference Range Comments MAGNESIUM (BEAKER) (test bqdx=041) 1.5 mg/dL 1.6-2.6 [id number] 00:12:00 Test Item Value Reference Range Comments PHOSPHORUS (BEAKER) (test ttjc=606) 2.2 mg/dL 2.3-4.7 CBC W/PLT COUNT & AUTO [id number] 23:43:00 Test Item Value Reference Range Comments WHITE BLOOD CELL COUNT (BEAKER) (test zepg=458) 4.6 K/ L 3.5-10.5 RED BLOOD CELL COUNT (BEAKER) (test idlv=577) 3.55 M/ L 3.93-5.22 HEMOGLOBIN (BEAKER) (test ivoe=686) 9.3 GM/DL 11.2-15.7 HEMATOCRIT (BEAKER) (test zusg=483) 28.6 % 34.1-44.9 MEAN CORPUSCULAR VOLUME (BEAKER) (test pube=164) 80.6 fL 79.4-94.8 MEAN CORPUSCULAR HEMOGLOBIN (BEAKER) (test 26.2 pg 25.6-32.2 inwf=856) MEAN CORPUSCULAR HEMOGLOBIN CONC (BEAKER) (test 32.5 GM/DL 32.2-35.5 quom=387) RED CELL DISTRIBUTION WIDTH (BEAKER) (test 15.0 % 11.7-14.4 ptoa=206) PLATELET COUNT (BEAKER) (test yzin=224) 123 K/CU MM 150-450 MEAN PLATELET VOLUME (BEAKER) (test hsbw=072) 9.6 fL 9.4-12.3 NUCLEATED RED BLOOD CELLS (BEAKER) (test 0 /100 WBC 0-0 qfjf=813) NEUTROPHILS RELATIVE PERCENT (BEAKER) (test 78 % nbff=641) LYMPHOCYTES RELATIVE PERCENT (BEAKER) (test 8 % esyu=928) MONOCYTES RELATIVE PERCENT (BEAKER) (test 8 % crkl=635) EOSINOPHILS RELATIVE PERCENT (BEAKER) (test 4 % hczj=256) BASOPHILS RELATIVE PERCENT (BEAKER) (test 0 % btqd=487) NEUTROPHILS ABSOLUTE COUNT (BEAKER) (test 3.64 K/ L 1.56-6.13 jlrs=952) LYMPHOCYTES ABSOLUTE COUNT (BEAKER) (test 0.37 K/ L 1.18-3.74 fvrz=423) MONOCYTES ABSOLUTE COUNT (BEAKER) (test 0.38 K/ L 0.24-0.36 wjxb=597) EOSINOPHILS ABSOLUTE COUNT (BEAKER) (test 0.20 K/ L 0.04-0.36 nbks=511) BASOPHILS ABSOLUTE COUNT (BEAKER) (test 0.01 K/ L 0.01-0.08 vins=785) IMMATURE GRANULOCYTES-RELATIVE PERCENT (BEAKER) 1 % 0-1 (test fxch=7842) PROTHROMBIN [id number] 23:26:00 Test Item Value Reference Range Comments PROTIME (BEAKER) (test hnkx=842) 21.7 seconds 11.7-14.7 INR (BEAKER) (test brub=303) 1.9 <=5.9 RECOMMENDED COUMADIN/WARFARIN INR THERAPY RANGESSTANDARD DOSE: 2.0 - 3.0 Includes: PROPHYLAXIS forvenous thrombosis, systemic embolization; TREATMENT for venous thrombosis and/or pulmonary embolus.HIGH RISK: Target INR is 2.5-3.5 for patients with mechanical heart valves.CALCIUM, [id number] 23:14:00 Test Item Value Reference Range Comments CALCIUM IONIZED (BEAKER) (test fjxw=211) 1.09 mmol/L 1.12-1.27 PH, BLOOD (BEAKER) (test vmyn=8494) 7.34 RAPID DRUG SCREEN, [id number] 19:55:00 Test Item Value Reference Range Comments BARBITURATE URINE (BEAKER) (test ujjh=764) Negative Negative BENZODIAZEPINE SCREEN URINE (BEAKER) (test Negative Negative dbcy=574) COCAINE (METAB.) SCREEN (BEAKER) (test mcdg=0931) Negative Negative METHADONE SCREEN (BEAKER) (test gxks=6103) Negative Negative OPIATE SCREEN URINE (BEAKER) (test fnfw=928) Negative Negative CANNABINOID SCREEN URINE (BEAKER) (test bkxu=346) Negative Negative AMPH/METHAMPH SCREEN (BEAKER) (test zloo=6696) Negative Negative PHENCYCLIDINE SCREEN URINE (BEAKER) (test xaqe=383) Negative Negative OXYCODONE SCREEN URINE (BEAKER) (test knrz=1045) Negative Negative DRUG CUTOFF CONC.Cocaine 300 ng/mL Cannabinoid 50 ng/mL Benzodiazepine 200 ng/mLBarbiturate 200 ng/ mLPhencyclidine 25 ng/mLOpiate 300 ng/mLMethadone 300 ng/mLAmphetamine/ 1000 ng/mL MethamphetamineOxycodone 300 ng/mLThis assay provides an unconfirmed qualitative test result for the clinical management of patients in emergency situations. Chain of custody not maintained. Some sejl-lkx-pjpetyd medications, as well as adulterants, may cause inaccurate results. Clinical correlation should be applied. A more comprehensive drug screen or confirmation of a detected drug may be performed upon request.HEPATITIS C [id number] 19:55:00 Test Item Value Reference Range Comments HEPATITIS C ANTIBODY (BEAKER) (test lpon=446) Nonreactive Nonreactive HEPATITIS B [id number] 19:55:00 Test Item Value Reference Range Comments HEPATITIS B CORE TOTAL ANTIBODY (BEAKER) (test Nonreactive Nonreactive gfrs=602) HEPATITIS B SURFACE ANTIBODY (BEAKER) (test < mIU/mL <8.0 xfft=068) HEPATITIS B SURFACE ANTIGEN (2) (BEAKER) (test Nonreactive Nonreactive ozxo=9391) HEPATITIS A [id number] 19:55:00 Test Item Value Reference Range Comments HEPATITIS A IGM ANTIBODY (BEAKER) (test Nonreactive Nonreactive thbg=144) HEPATITIS A IGG ANTIBODY (BEAKER) (test Reactive Nonreactive lrdj=8087) HIV-1 ANTIGEN WITH HIV-1/2 [id number] 19:49:00 Test Item Value Reference Range Comments HIV-1 ANTIGEN WITH HIV 1\T\2 ANTIBODY (2) Nonreactive Nonreactive (BEAKER) (test kily=8732) IMMUNOGLOBULIN G (IGG)2017-03-28 19:25:00 Test Item Value Reference Range Comments IMMUNOGLOBULIN G (IGG) (BEAKER) (test zqpv=704) 896 mg/dL 540-1822 [id number] 19:25:00 Test Item Value Reference Range Comments HAPTOGLOBIN (BEAKER) (test vhex=473) 49 mg/dL 14-258 SALICYLATE [id number] 17:46:00 Test Item Value Reference Range Comments SALICYLATE LEVEL (BEAKER) (test vxbz=867) < mg/dL 15.0-30.0 Therapeutic Range: 15.0-30.0 mg/dLToxic: >30.0 mg/dL Lethal: >70.0 mg/[id number] 17:22:00 Test Item Value Reference Range Comments FIBRINOGEN LEVEL (BEAKER) (test ehvc=763) 297 mg/dl 225-434 GAMMA GLUTAMYL TRANSFERASE (GGT)2017-03-28 17:21:00 Test Item Value Reference Range Comments GAMMA GLUTAMYL TRANSFERASE (BEAKER) (test zaty=320) 85 U/L 9-64 [id number] 17:21:00 Test Item Value Reference Range Comments FIBRINOGEN LEVEL (BEAKER) (test vlbv=309) 284 mg/dl 225-434 [id number] 17:14:00 Test Item Value Reference Range Comments ETHANOL (BEAKER) (test rkru=421) < mg/dL <=10 URINALYSIS W/ REFLEX URINE [id number] 09:53:00 Test Item Value Reference Range Comments COLOR (BEAKER) (test oncc=825) Yellow CLARITY (BEAKER) (test uuxy=094) Hazy SPECIFIC GRAVITY UA (BEAKER) (test psub=830) 1.010 1.001-1.035 PH UA (BEAKER) (test sxai=987) 6.5 5.0-8.0 PROTEIN UA (BEAKER) (test tvrm=603) 30 mg/dL Negative GLUCOSE UA (BEAKER) (test ycga=536) Negative Negative KETONES UA (BEAKER) (test bedh=536) Negative Negative BILIRUBIN UA (BEAKER) (test gtog=661) Negative Negative BLOOD UA (BEAKER) (test kwru=120) Negative Negative NITRITE UA (BEAKER) (test wmlv=953) Negative Negative LEUKOCYTE ESTERASE UA (BEAKER) (test oscd=431) Negative Negative UROBILINOGEN UA (BEAKER) (test vnia=043) 0.2 mg/dL 0.2-1.0 RBC UA (BEAKER) (test bwea=241) 0 /HPF WBC UA (BEAKER) (test bsdp=111) 27 /HPF BACTERIA (BEAKER) (test eamz=187) Many SOURCE(BEAKER) (test vdqh=1022) HEPATITIS A ANTIBODY, [id number] 07:26:00 Test Item Value Reference Range Comments HEPATITIS A IGG ANTIBODY (BEAKER) (test jbkz=9535) Reactive Nonreactive [id number] 04:51:00 Test Item Value Reference Range Comments FERRITIN (BEAKER) (test riul=251) 966 ng/mL 5-275 ALPHA FETOPROTEIN (AFP), TUMOR [id number] 04:51:00 Test Item Value Reference Range Comments ALPHA-FETOPROTEIN (BEAKER) (test xore=0805) 12.3 ng/mL <10.0 ACETAMINOPHEN [id number] 04:33:00 Test Item Value Reference Range Comments ACETAMINOPHEN LEVEL (BEAKER) (test nted=282) < ug/mL 10.0-30.0 Therapeutic Range: 10.0-30.0 g/mLToxic Levels: >200.0 g/mLHEPATIC FUNCTION [id number] 04:31:00 Test Item Value Reference Range Comments TOTAL PROTEIN (BEAKER) (test qthk=908) 5.4 gm/dL 6.0-8.3 ALBUMIN (BEAKER) (test qbrb=7220) 3.1 g/dL 3.5-5.0 BILIRUBIN TOTAL (BEAKER) (test moxb=535) 2.8 mg/dL 0.2-1.2 BILIRUBIN DIRECT (BEAKER) (test nevk=057) 1.9 mg/dL 0.1-0.5 ALKALINE PHOSPHATASE (BEAKER) (test sidl=984) 98 U/L 40-150 AST (SGOT) (BEAKER) (test asvm=225) 2308 U/L 5-34 ALT (SGPT) (BEAKER) (test zvga=966) 5311 U/L 6-55 Specimen slightly ictericHEPATITIS B SURFACE [id number] 04:29:00 Test Item Value Reference Range Comments HEPATITIS B SURFACE ANTIGEN (2) (BEAKER) (test Nonreactive Nonreactive rwae=5191) HEPATITIS C [id number] 04:29:00 Test Item Value Reference Range Comments HEPATITIS C ANTIBODY (BEAKER) (test eznb=156) Nonreactive Nonreactive [id number] 03:40:00 Test Item Value Reference Range Comments PHOSPHORUS (BEAKER) (test hwgs=400) 2.0 mg/dL 2.3-4.7 BASIC METABOLIC [id number] 03:40:00 Test Item Value Reference Range Comments SODIUM (BEAKER) (test 139 meq/L 136-145 zjbz=809) POTASSIUM (BEAKER) (test 3.2 meq/L 3.5-5.1 iubn=633) CHLORIDE (BEAKER) (test 111 meq/L 98-107 xbbc=918) CO2 (BEAKER) (test 18 meq/L 22-29 bjhq=326) BLOOD UREA NITROGEN 8 mg/dL 7-21 (BEAKER) (test moqh=617) CREATININE (BEAKER) (test 0.66 mg/dL 0.57-1.25 rvek=280) GLUCOSE RANDOM (BEAKER) 94 mg/dL 70-105 (test ilqc=994) CALCIUM (BEAKER) (test 8.7 mg/dL 8.4-10.2 addp=399) EGFR (BEAKER) (test 90 mL/min/1.73 sq m ESTIMATED GFR IS NOT zzvu=2606) ACCURATE CREATININE CLEARANCE IN PREDICTING GLOMERULAR FILTRATION RATE. ESTIMATED GFR IS NOT APPLICABLE FOR DIALYSIS PATIENTS. Specimen slightly ictericCBC W/PLT COUNT & AUTO [id number] 03:38 :00 Test Item Value Reference Range Comments WHITE BLOOD CELL COUNT (BEAKER) (test fvsp=223) 8.7 K/ L 3.5-10.5 RED BLOOD CELL COUNT (BEAKER) (test bgrd=613) 4.26 M/ L 3.93-5.22 HEMOGLOBIN (BEAKER) (test bvnq=195) 11.3 GM/DL 11.2-15.7 HEMATOCRIT (BEAKER) (test xupc=611) 34.1 % 34.1-44.9 MEAN CORPUSCULAR VOLUME (BEAKER) (test fdly=354) 80.0 fL 79.4-94.8 MEAN CORPUSCULAR HEMOGLOBIN (BEAKER) (test 26.5 pg 25.6-32.2 cvpt=759) MEAN CORPUSCULAR HEMOGLOBIN CONC (BEAKER) (test 33.1 GM/DL 32.2-35.5 ahpd=112) RED CELL DISTRIBUTION WIDTH (BEAKER) (test 14.5 % 11.7-14.4 mhns=357) PLATELET COUNT (BEAKER) (test fxad=164) 112 K/CU MM 150-450 MEAN PLATELET VOLUME (BEAKER) (test syyc=642) 9.2 fL 9.4-12.3 NUCLEATED RED BLOOD CELLS (BEAKER) (test 0 /100 WBC 0-0 phgi=534) NEUTROPHILS RELATIVE PERCENT (BEAKER) (test 90 % fgww=253) LYMPHOCYTES RELATIVE PERCENT (BEAKER) (test 5 % jrrt=119) MONOCYTES RELATIVE PERCENT (BEAKER) (test 3 % dvcx=167) EOSINOPHILS RELATIVE PERCENT (BEAKER) (test 1 % bgea=382) BASOPHILS RELATIVE PERCENT (BEAKER) (test 0 % putw=159) NEUTROPHILS ABSOLUTE COUNT (BEAKER) (test 7.86 K/ L 1.56-6.13 jzek=917) LYMPHOCYTES ABSOLUTE COUNT (BEAKER) (test 0.40 K/ L 1.18-3.74 mrqv=832) MONOCYTES ABSOLUTE COUNT (BEAKER) (test 0.27 K/ L 0.24-0.36 frqk=346) EOSINOPHILS ABSOLUTE COUNT (BEAKER) (test 0.10 K/ L 0.04-0.36 xxmv=404) BASOPHILS ABSOLUTE COUNT (BEAKER) (test 0.02 K/ L 0.01-0.08 nrgl=274) IMMATURE GRANULOCYTES-RELATIVE PERCENT (BEAKER) 1 % 0-1 (test liwc=0838) PROTHROMBIN [id number] 03:30:00 Test Item Value Reference Range Comments PROTIME (BEAKER) (test hmpf=910) 27.0 seconds 11.7-14.7 INR (BEAKER) (test doqo=164) 2.5 <=5.9 RECOMMENDED COUMADIN/WARFARIN INR THERAPY RANGESSTANDARD DOSE: 2.0 - 3.0 Includes: PROPHYLAXIS forvenous thrombosis, systemic embolization; TREATMENT for venous thrombosis and/or pulmonary embolus.HIGH RISK: Target INR is 2.5-3.5 for patients with mechanical heart valves.
[2017-05-31 19:38] LABS: Absolute Lymphocytes (CBC) 0.8 K/uL (0.7-4.9); Absolute Monocytes 0.5 K/uL (0.1-1.3); Absolute Neutrophil 4.3 K/uL (1.8-8.0); Basophils % 0.4 % (0-1.3); Eosinophils % 0.3 % (0-4.4); Hematocrit 39.5 % (36.0-45.0); MCH 26.3 pg (27.0-35.0); MCV 79.1 fL (80-100); MPV 6.6 fL (7.6-11.3); Monocytes % 8.2 % (3.3-12.3); RBC Red Blood Cell Count 4.99 M/uL (3.86-4.86)
[2017-05-31 19:40] LABS: Protime INR 1.05
[2017-05-31 19:48] LABS: Glucose Level 114 mg/dL (65-120)
[2017-05-31 19:52] LABS: Bicarbonate 32 mEq/L (21-31); Sodium Level 136 mEq/L (135-145)
[2017-05-31 19:53] LABS: ALT/SGPT 16 IU/L (10-60); AST/SGOT 26 IU/L (10-42); Albumin 5.1 g/dL (3.2-5.5); Alkaline Phosphatase 70 IU/L (42-121); BUN Blood Urea Nitrogen 16 mg/dL (6-20); Bilirubin Direct 0.5 mg/dL (0-0.2); Bilirubin Total 1.9 mg/dL (0.3-1.2); Glomerular Filtration Rate 62 mL/min (=/>90); Protein, Total 8.2 g/dL (6.0-8.3)
[2017-05-31 20:01] LABS: Alcohol Serum/Plasma < 10 mg/dl
[2017-05-31 20:02] LABS: Salicylates Level < 4.0 mg/dl (<30)
[2017-05-31 20:04] LABS: Potassium 2.5 mEq/L (3.6-5.0)
[2017-05-31 20:10] LABS: Urine Blood 2+ (NEG); Urine Glucose NEGATIVE (NEG); Urine Protein 1+ (NEG); Urine Specific Gravity 1.015 (1.005-1.030)
[2017-05-31 20:14] LABS: Barbiturates NEGATIVE; Benzodiazepines NEGATIVE; Cocaine NEGATIVE; METHAMPHETAM NEGATIVE; Opiates NEGATIVE; Phencyclidine NEGATIVE; THC Cannibis NEGATIVE
[2017-05-31] MEDS ORDERED: NA CHLORIDE 0.9% 500 ML ONE (20:25)
[2017-05-31] MEDS ORDERED: KCL 20 MEQ/100 mL IVPB 20 MEQ/100 ML BAG IV ONE (20:25)
[2017-05-31 20:27] LABS: Urine Bacteria <20 /HPF (<20); Urine Culture Reflex Order REFLEXED; Urine Mucus NS /HPF (NONE SEEN)
[2017-05-31] MEDS ORDERED: POTASSIUM 25 MEQ EFFERV TAB ONE (20:27)
[2017-06-01] MEDS ORDERED: LORAZEPAM 1 MG TABLET ONE (01:08)
[2017-06-01] MEDS ORDERED: KCL 20 MEQ/100 mL IVPB 20 MEQ/100 ML BAG IV ONE ×2 (02:42→07:47)
[2017-06-01] MEDS ORDERED: POTASSIUM CL SA 10 MEQ TAB PO ONE ×2 (03:41→07:46)
--- NOTE | 2017-06-01 07:28 | ER ---
Nurse's Notes [facility] Name: Klarissa Toussaint Age: 62 yrs Sex: Female : 1955 Arrival Date: 05/31/2017 Time: 18:02 Bed 6 Private MD: Diagnosis: Suicidal ideations;Unspecified psychosis not due to a substance or known physiological condition;Hypokalemia Presentation: 05/31 18:17 Presenting complaint: Brother states she had an episode yesterday where she ran outside la1 in to a [employer] truck and was honking the horn. The police were called and she stayed overnight for PI. I picked her up in the morning and she is hallucinating and speaking about things that are not real. Brother states this has happened in the past. Pt alert, oriented x4 at this time. Transition of care: patient was not received from another setting of care. Onset of symptoms was May 31, 2017. Care prior to arrival: None. 18:17 Method Of Arrival: Ambulatory la1 18:17 Acuity: AJ 3 la1 Historical: - Allergies: 18:19 Aspirin; la1 18:19 Tylenol; la1 - Home Meds: 20:03 clonazepam 2 mg Oral tab 2 times per day [Active]; gabapentin 300 mg Oral cap twice a tl1 day [Active]; estradiol 0.5 mg Oral tab [Active]; pantoprazole 40 mg Oral TbEC [Active]; Depakote 500 mg Oral TbEC 1 tab 2 times per day [Active]; divalproex Oral [Active]; fluticasone 50 mcg/actuation nasal spsn 1 spray 2 times per day [Active]; mirtazapine 30 mg Oral TbDL 1 tab once daily [Active]; zolpidem 10 mg Oral tab 1 tab once daily [Active]; suboxone [Active]; - PMHx: 18:19 Anxiety; colon cancer; la1 - PSHx: 18:19 ostomy; la1 - Immunization history:: Adult Immunizations up to date. - Social history:: Smoking status: Patient/guardian denies using tobacco. Screenin:28 Abuse screen: Denies threats or abuse. Denies injuries from another. Nutritional tl1 screening: No deficits noted. Tuberculosis screening: No symptoms or risk factors identified. Fall Risk IV access (20 points). Assessment: 19:29 General: Appears slender, Behavior is cooperative, anxious, crying. Pain: Denies pain. tl1 Neuro: Level of Consciousness is awake, alert, obeys commands, confused, Oriented to person, place. Cardiovascular: Denies chest pain, Capillary refill < 3 seconds Patient's skin is warm and dry. Respiratory: Airway is patent Trachea midline Respiratory effort is even, unlabored, Respiratory pattern is regular, symmetrical. GI: Abdomen is non-distended, Bowel sounds present X 4 quads. Abd is soft and non tender X 4 quads. : No signs and/or symptoms were reported regarding the genitourinary system. EENT: No signs and/or symptoms were reported regarding the EENT system. Derm: No signs and/or symptoms reported regarding the dermatologic system. 19:55 GI: Colostomy site is clean and dry. Ostomy appliance is intact. GI: : : Urine is tl1 cloudy, urostomy bag to right lower abdomen. Site clean and intact. 21:49 Reassessment: Call sister in law, Clarisa Hernandez with any changes. [phone]. tl2 21:58 Reassessment: No changes from previously documented assessment. Patient and/or family tl1 updated on plan of care and expected duration. Pain level reassessed. Patient is alert, oriented x 3, equal unlabored respirations, skin warm/dry/pink. 23:08 Reassessment: Patient appears in no apparent distress at this time. Patient and/or tl2 family updated on plan of care and expected duration. Pain level reassessed. Patient is alert, oriented x 3, equal unlabored respirations, skin warm/dry/pink. 06/01 06:04 Reassessment: No changes from previously documented assessment. Patient and/or family tl1 updated on plan of care and expected duration. Pain level reassessed. General: Behavior is inappropriate for age. Neuro: Level of Consciousness is awake, alert, confused. 07:00 Reassessment: Pt resting with eyes closed, easily arouses to verbal stimuli. Denies hb pain. VSS. Sitter at bedside. 07:40 Reassessment: Dr. Chowdhury at bedside. hb 08:30 Reassessment: Patient appears in no apparent distress at this time. No changes from hb previously documented assessment. Patient and/or family updated on plan of care and expected duration. Pain level reassessed. Sitter at bedside. 10:07 Reassessment: Patient appears in no apparent distress at this time. No changes from la1 previously documented assessment. Patient and/or family updated on plan of care and expected duration. Pain level reassessed. Patient is alert, oriented x 3, equal unlabored respirations, skin warm/dry/pink. SITTER AT BEDSIDE. 12:37 Reassessment: Patient appears in no apparent distress at this time. No changes from la1 previously documented assessment. Patient and/or family updated on plan of care and expected duration. Pain level reassessed. Patient is alert, oriented x 3, equal unlabored respirations, skin warm/dry/pink. Vital Signs: 05/31 18:19 BP 171 / 81; Pulse 103; Resp 19; Temp 98.4; Pulse Ox 100% on R/A; Weight 42.64 kg; la1 Height 5 ft. 3 in. (160.02 cm); 19:43 BP 176 / 78; Pulse 91; Resp 16; Pulse Ox 99% on R/A; Pain 0/10; tl1 20:18 BP 170 / 81; Pulse 92; Resp 17; Pulse Ox 100% ; Pain 0/10; tl1 21:18 BP 159 / 82; Pulse 95; Resp 18; Pulse Ox 96% ; Pain 0/10; tl1 21:57 BP 149 / 73; Pulse 87; Resp 17; Pulse Ox 100% ; Pain 0/10; tl1 23:08 BP 164 / 76; Pulse 84; Resp 18; Pulse Ox 100% on R/A; tl2 0407 00:13 BP 170 / 87; Pulse 96; Resp 18; Pulse Ox 99% on R/A; tl2 02:31 BP 161 / 80; Pulse 18; Resp 93; Pulse Ox 99% on R/A; oe 03:30 BP 152 / 81; Pulse 94; Resp 18; Pulse Ox 99% on R/A; oe 04:42 BP 150 / 86; Pulse 86; Resp 18; Pulse Ox 97% on R/A; oe 05:27 BP 162 / 86; Pulse 89; Resp 18; Pulse Ox 97% on R/A; oe 06:25 BP 157 / 79; Pulse 88; Resp 18; Pulse Ox 97% on R/A; oe 07:15 BP 131 / 74; Pulse 100; Resp 15; Pulse Ox 100% on R/A; Pain 0/10; hb 08:30 BP 137 / 65; Pulse 84; Resp 15; Pulse Ox 100% on R/A; Pain 0/10; hb 12:37 BP 138 / 65; Pulse 87; Resp 16; Temp 97.4; Pulse Ox 100% on R/A; la1 05/31 18:19 Body Mass Index 16.65 (42.64 kg, 160.02 cm) la1 ED Course: 05/31 18:02 Patient arrived in ED. as 18:19 Triage completed. la1 18:19 Arm band placed on left wrist. la1 19:04 Harry Foley PA is PHCP. cp 19:04 Harry Carmona MD is Attending Physician. cp 19:27 Jaylin Grajeda, MERCEDES is Primary Nurse. tl1 19:27 No provider procedures requiring assistance completed. Inserted saline lock: 22 gauge tl1 in left antecubital area, using aseptic technique. Blood collected. 23:07 Edmundo Castro MD is Attending Physician. cp 06/01 00:30 Safety checks: Items removed: yes. Door open/sign placed on door: yes. Family/friend oe present: Other: transferred to room 6 from trauma room 3,patient still awake.. 00:39 Safety checks: Items removed: yes. Door open/sign placed on door: yes. Family/friend oe present: Other: Patient trying to sleep. 00:45 Safety checks: Items removed: yes. Door open/sign placed on door: yes. Family/friend oe present: Other: Patient still awake in bed. 01:00 Safety checks: Items removed: yes. Door open/sign placed on door: yes. Family/friend oe present: no. 01:15 Safety checks: Items removed: yes. Door open/sign placed on door: yes. Family/friend oe present: no. 01:30 Safety checks: Items removed: yes. Door open/sign placed on door: yes. Family/friend oe present: no. 01:45 Safety checks: Items removed: yes. Door open/sign placed on door: yes. Family/friend oe present: no. 02:00 Safety checks: Items removed: yes. Door open/sign placed on door: yes. Family/friend oe present: no. 02:15 Safety checks: Items removed: yes. Door open/sign placed on door: yes. Family/friend oe present: Other: IV line inserted by Carmelita. 02:18 Inserted 18 gauge 8 cm midline to right upper basilic vein on first attempt. Line with fc good blood return and flushes well. 02:30 Safety checks: Items removed: yes. Door open/sign placed on door: yes. Family/friend oe present: Other: Potassium fluid ongoing,patient still awake and keeps talking. 02:45 Safety checks: Items removed: yes. Door open/sign placed on door: yes. Family/friend oe present: no. 03:00 Safety checks: Items removed: yes. Door open/sign placed on door: yes. Family/friend oe present: no. 03:15 Safety checks: Items removed: yes. Door open/sign placed on door: yes. Family/friend oe present: no. 03:30 Safety checks: Items removed: yes. Door open/sign placed on door: yes. Family/friend oe present: no. 03:45 Safety checks: Items removed: yes. Door open/sign placed on door: yes. Family/friend oe present: no. 04:00 Safety checks: Items removed: yes. Door open/sign placed on door: yes. Family/friend oe present: no. 04:15 Safety checks: Items removed: yes. Door open/sign placed on door: yes. Family/friend oe present: no. 04:30 Safety checks: Items removed: yes. Door open/sign placed on door: yes. Family/friend oe present: no. 04:45 Safety checks: Items removed: yes. Door open/sign placed on door: yes. Family/friend oe present: no. 05:00 Safety checks: Items removed: yes. Door open/sign placed on door: yes. Family/friend oe present: no. 05:29 Safety checks: Items removed: yes. Door open/sign placed on door: yes. Family/friend oe present: no. 05:45 Safety checks: Items removed: yes. Door open/sign placed on door: yes. Family/friend oe present: no. 06:00 Safety checks: Items removed: yes. Door open/sign placed on door: yes. Family/friend oe present: no. 06:15 Safety checks: Items removed: yes. Door open/sign placed on door: yes. Family/friend oe present: no. 06:30 Safety checks: Items removed: yes. Door open/sign placed on door: yes. Family/friend oe present: no. 06:45 Safety checks: Items removed: yes. Door open/sign placed on door: yes. Family/friend oe present: Other: Patient is sleeping now. 07:00 Safety Checks: Personal items have been removed The door is open or patient has been hb placed in a hallway bed/chair. There are no family/friend visitors at this time. 07:00 Patient has correct armband on for positive identification. Bed in low position. Side hb rails up X2. Sitter at bedside. 07:15 Safety Checks: Personal items have been removed The door is open or patient has been hb placed in a hallway bed/chair. There are no family/friend visitors at this time. 07:26 Masoud Chowdhury MD is Hospitalizing Provider. tw4 07:30 Safety Checks: Personal items have been removed The door is open or patient has been hb placed in a hallway bed/chair. There are no family/friend visitors at this time. 07:45 Safety Checks: Personal items have been removed The door is open or patient has been hb placed in a hallway bed/chair. There are no family/friend visitors at this time. 08:00 Safety Checks: Personal items have been removed The door is open or patient has been hb placed in a hallway bed/chair. There are no family/friend visitors at this time. 08:04 Primary Nurse role handed off by Jaylin Grajeda RN 08:15 Safety Checks: Personal items have been removed The door is open or patient has been hb placed in a hallway bed/chair. There are no family/friend visitors at this time. 08:30 Safety Checks: Personal items have been removed The door is open or patient has been hb placed in a hallway bed/chair. There are no family/friend visitors at this time. 08:45 Safety Checks: Personal items have been removed The door is open or patient has been hb placed in a hallway bed/chair. There are no family/friend visitors at this time. 08:59 Jia Pyle RN is Primary Nurse. 09:00 Safety Checks: Personal items have been removed The door is open or patient has been la1 placed in a hallway bed/chair. There are no family/friend visitors at this time. 09:15 Safety Checks: Personal items have been removed The door is open or patient has been la1 placed in a hallway bed/chair. There are no family/friend visitors at this time. 09:30 Safety Checks: Personal items have been removed The door is open or patient has been la1 placed in a hallway bed/chair. There are no family/friend visitors at this time. 09:45 Safety Checks: Personal items have been removed The door is open or patient has been la1 placed in a hallway bed/chair. There are no family/friend visitors at this time. 10:00 Safety Checks: Personal items have been removed The door is open or patient has been la1 placed in a hallway bed/chair. There are no family/friend visitors at this time. 10:15 Safety Checks: Personal items have been removed The door is open or patient has been la1 placed in a hallway bed/chair. There are no family/friend visitors at this time. 10:30 Safety Checks: Personal items have been removed The door is open or patient has been la1 placed in a hallway bed/chair. There are no family/friend visitors at this time. 10:43 X-ray completed. Portable x-ray completed in exam room. Patient tolerated procedure kp1 well. 10:45 Safety Checks: Personal items have been removed The door is open or patient has been la1 placed in a hallway bed/chair. There are no family/friend visitors at this time. 11:00 Safety Checks: Personal items have been removed The door is open or patient has been la1 placed in a hallway bed/chair. There are no family/friend visitors at this time. 11:15 Safety Checks: Personal items have been removed The door is open or patient has been la1 placed in a hallway bed/chair. There are no family/friend visitors at this time. 11:30 Safety Checks: Personal items have been removed The door is open or patient has been la1 placed in a hallway bed/chair. There are no family/friend visitors at this time. 11:45 Safety Checks: Personal items have been removed The door is open or patient has been la1 placed in a hallway bed/chair. There are no family/friend visitors at this time. 12:00 Safety Checks: Personal items have been removed The door is open or patient has been la1 placed in a hallway bed/chair. There are no family/friend visitors at this time. 12:15 Safety Checks: Personal items have been removed The door is open or patient has been la1 placed in a hallway bed/chair. There are no family/friend visitors at this time. 12:30 Safety Checks: Personal items have been removed The door is open or patient has been la1 placed in a hallway bed/chair. There are no family/friend visitors at this time. 12:46 Patient admitted, IV remains in place. la1 Administered Medications: 05/31 20:11 Drug: Potassium Effervescent Tablet 50 mEq Route: PO; 1 06/01 00:44 Follow up: Response: No adverse reaction 1 05/31 20:11 Drug: Potassium Chloride 20 mEq Route: IV; Rate: calculated rate; Site: left tl1 antecubital; 21:15 Follow up: IV Status: Completed infusion 1 20:12 Drug: NS 0.9% 500 ml Route: IV; Rate: bolus; Site: left antecubital; tl1 21:00 Follow up: IV Status: Completed infusion tl1 06/01 00:50 Drug: Ativan 1 mg Route: PO; tl1 04:30 Follow up: Response: No adverse reaction; No change in condition tl1 02:26 Drug: Potassium Chloride 20 mEq Route: IV; Rate: calculated rate; Site: right upper arm;tl1 04:30 Follow up: IV Status: Completed infusion tl1 03:23 Drug: Potassium Chloride 40 mEq Route: PO; tl1 04:30 Follow up: Response: No adverse reaction; No change in condition tl1 07:34 Drug: Potassium Chloride 40 mEq Route: PO; ph 10:08 Follow up: Response: No adverse reaction la1 07:34 Drug: Potassium Chloride 20 mEq Route: IV; Rate: calculated rate; Site: PICC; ph 10:08 Follow up: IV Status: Infusion continued upon admission la1 Outcome: 07:27 Decision to Hospitalize by Provider. tw4 08:03 Patient left the ED. hb 12:45 Admitted to ICU accompanied by nurse, via stretcher, room 1, Report called to tiffanie bobo 12:45 Condition: stable 12:45 Instructed on the need for admit. 12:45 No charge visit due to 13:05 Patient left the ED. la1 Signatures: Carmelita Hopkins RN RN fc Martinez, Amelia as Attema, Lee, RN RN la1 Jaylin Grajeda, RN RN tl1 Christine Espinosa RN RN ph Page, Corey, PA PA cp Baxter, Heather, RN RN hb Knox, Taylor, RN RN tl2 [place] Kathy 1 Edmundo Castro MD MD tw4 Corrections: (The following items were deleted from the chart) 00:37 00:30 Safety checks: Items removed: yes. Door open/sign placed on door: yes. oe Family/friend present: no. oe 00:52 00:38 Safety checks: Items removed: yes. Door open/sign placed on door: yes. oe Family/friend present: no. oe 00:52 00:40 Safety checks: Items removed: yes. Door open/sign placed on door: yes. oe Family/friend present: no. oe 00:58 00:30 Safety checks: Items removed: yes. Door open/sign placed on door: yes. oe Family/friend present: no. oe 01:00 00:45 Safety checks: Items removed: yes. Door open/sign placed on door: yes. oe Family/friend present: no. oe 01:10 00:39 Safety checks: Items removed: yes. Door open/sign placed on door: yes. oe Family/friend present: no. oe 01:16 00:30 Safety checks: Items removed: yes. Door open/sign placed on door: yes. oe Family/friend present: Other: transferred to room 6 from trauma room 3,patient still awake.. oe 01:18 00:39 Safety checks: Items removed: yes. Door open/sign placed on door: yes. oe Family/friend present: Other: Patient trying to sleep. oe : 00:40 Safety checks: Items removed: yes. Door open/sign placed on door: yes. oe Family/friend present: no. oe : 00:40 Safety checks: Items removed: yes. Door open/sign placed on door: yes. oe Family/friend present: no. oe 02:02 02:00 Safety checks: Items removed: yes. Door open/sign placed on door: yes. oe Family/friend present: no. oe 02:38 02:34 Safety checks: Items removed: yes. Door open/sign placed on door: yes. oe Family/friend present: Other: Potassium fluid ongoing,patient still awake and keeps talking. oe 03:00 02:59 Safety checks: Items removed: yes. Door open/sign placed on door: yes. oe Family/friend present: no. oe 05:07 05:06 Safety checks: Items removed: yes. Door open/sign placed on door: yes. oe Family/friend present: no. oe 06:19 06:11 Safety checks: Items removed: yes. Door open/sign placed on door: yes. oe Family/friend present: no. oe
--- NOTE | 2017-06-01 07:28 | EDPHYS ---
Physician Documentation [facility] Name: Klarissa Toussaint Age: 62 yrs Sex: Female : 1955 Arrival Date: 05/31/2017 Time: 18:02 Bed 6 Private MD: ED Physician Edmundo Castro HPI: 05/31 19:30 This 62 yrs old Female presents to ER via Ambulatory with complaints of Psych cp Problem - Hallucinations. 19:30 The patient presents to the emergency department with psychosis. Onset: The cp symptoms/episode began/occurred 2 month(s) ago, and became worse yesterday. Past psychiatric history: Prior diagnosis: Anxiety, the patient has not had a prior suicide gesture, the patient does not have a previous inpatient psychiatric history. Associated signs and symptoms: Pertinent negatives: abdominal pain, chest pain, fever. Severity of symptoms: in the emergency department the symptoms are unchanged. Historical: - Allergies: 18:19 Aspirin; la1 18:19 Tylenol; la1 - Home Meds: 20:03 clonazepam 2 mg Oral tab 2 times per day [Active]; gabapentin 300 mg Oral cap twice a tl1 day [Active]; estradiol 0.5 mg Oral tab [Active]; pantoprazole 40 mg Oral TbEC [Active]; Depakote 500 mg Oral TbEC 1 tab 2 times per day [Active]; divalproex Oral [Active]; fluticasone 50 mcg/actuation nasal spsn 1 spray 2 times per day [Active]; mirtazapine 30 mg Oral TbDL 1 tab once daily [Active]; zolpidem 10 mg Oral tab 1 tab once daily [Active]; suboxone [Active]; - PMHx: 18:19 Anxiety; colon cancer; la1 - PSHx: 18:19 ostomy; la1 - Immunization history:: Adult Immunizations up to date. - Social history:: Smoking status: Patient/guardian denies using tobacco. ROS: 19:35 Constitutional: Negative for body aches, chills, fever, poor PO intake. cp 19:35 Eyes: Negative for injury, pain, redness, and discharge, ENT: Negative for injury, cp pain, and discharge, Cardiovascular: Negative for chest pain, palpitations, and edema, Respiratory: Negative for shortness of breath, cough, wheezing, and pleuritic chest pain, Abdomen/GI: Negative for abdominal pain, nausea, vomiting, diarrhea, and constipation. 19:35 Neuro: Negative for altered mental status, headache. 19:35 Psych: Positive for depression. 19:35 All other systems are negative. Exam: 19:39 ECG was reviewed by the Attending Physician. cp 19:40 Constitutional: The patient appears alert, awake, non-diaphoretic, well developed, well cp nourished, tearful 19:40 Head/Face: Normocephalic, atraumatic. Eyes: Pupils equal round and reactive to light, cp extra-ocular motions intact. Lids and lashes normal. Conjunctiva and sclera are non-icteric and not injected. Cornea within normal limits. Periorbital areas with no swelling, redness, or edema. ENT: Nares patent. No nasal discharge, no septal abnormalities noted. Tympanic membranes are normal and external auditory canals are clear. Oropharynx with no redness, swelling, or masses, exudates, or evidence of obstruction, uvula midline. Mucous membranes moist. Chest/axilla: Normal chest wall appearance and motion. Nontender with no deformity. No lesions are appreciated. 19:40 Cardiovascular: Rate: normal, Rhythm: regular, Pulses: Pulses are 2+ in right radial artery and left radial artery. Edema: is not appreciated, JVD: is not appreciated. 19:40 Respiratory: the patient does not display signs of respiratory distress, Respirations: normal, no use of accessory muscles, no retractions, no splinting, no tachypnea, labored breathing, is not present, Breath sounds: are clear throughout, no decreased breath sounds, no stridor, no wheezing. 19:40 Back: pain, is absent, ROM is normal. 19:40 Skin: cellulitis, is not appreciated, no rash present. 19:40 Neuro: Orientation: to person, place \T\ time. Mentation: lucid, able to follow commands, Cerebellar function: is grossly normal, Motor: moves all fours, strength is normal, Sensation: no obvious gross deficits. 19:40 Psych: Behavior/mood is depressed, Affect is calm. 19:40 Abdomen/GI: Inspection: noted LLQ urostomy and RLQ ostomy, Bowel sounds: active, all cp quadrants, Palpation: abdomen is soft and non-tender, in all quadrants. Vital Signs: 18:19 BP 171 / 81; Pulse 103; Resp 19; Temp 98.4; Pulse Ox 100% on R/A; Weight 42.64 kg; la1 Height 5 ft. 3 in. (160.02 cm); 19:43 BP 176 / 78; Pulse 91; Resp 16; Pulse Ox 99% on R/A; Pain 0/10; tl1 20:18 BP 170 / 81; Pulse 92; Resp 17; Pulse Ox 100% ; Pain 0/10; tl1 21:18 BP 159 / 82; Pulse 95; Resp 18; Pulse Ox 96% ; Pain 0/10; tl1 21:57 BP 149 / 73; Pulse 87; Resp 17; Pulse Ox 100% ; Pain 0/10; tl1 23:08 BP 164 / 76; Pulse 84; Resp 18; Pulse Ox 100% on R/A; tl2 06/01 00:13 BP 170 / 87; Pulse 96; Resp 18; Pulse Ox 99% on R/A; tl2 02:31 BP 161 / 80; Pulse 18; Resp 93; Pulse Ox 99% on R/A; oe 03:30 BP 152 / 81; Pulse 94; Resp 18; Pulse Ox 99% on R/A; oe 04:42 BP 150 / 86; Pulse 86; Resp 18; Pulse Ox 97% on R/A; oe 05:27 BP 162 / 86; Pulse 89; Resp 18; Pulse Ox 97% on R/A; oe 06:25 BP 157 / 79; Pulse 88; Resp 18; Pulse Ox 97% on R/A; oe 07:15 BP 131 / 74; Pulse 100; Resp 15; Pulse Ox 100% on R/A; Pain 0/10; hb 08:30 BP 137 / 65; Pulse 84; Resp 15; Pulse Ox 100% on R/A; Pain 0/10; hb 12:37 BP 138 / 65; Pulse 87; Resp 16; Temp 97.4; Pulse Ox 100% on R/A; la1 05/31 18:19 Body Mass Index 16.65 (42.64 kg, 160.02 cm) la1 MDM: 05/31 19:04 Patient medically screened. bing 20:00 Differential diagnosis: drug withdrawal. acute psychotic break, depression, psychosis cp secondary to non-compliance. 06/01 00:09 ED course: VSS. Patient evaluated by [facility] and inpatient treatment recommended. cp 01:20 Data reviewed: vital signs, nurses notes, lab test result(s), EKG. cp 07:27 Physician consultation: Masoud Chowdhury MD was contacted at 07:25, regarding admission, tw4 patient's condition, and will see patient in inpatient room, later today. ED course: Pt will admitted for IVR resuscitation and potassium replacement. Mobile psych team to evaluate for placement . 05/31 19:11 Order name: Acetaminophen; Complete Time: 20:05 cp 05/31 19:11 Order name: Basic Metabolic Panel; Complete Time: 20:05 cp 05/31 20:05 Interpretation: Normal except: K 2.5; CL 97; CO2 32; GFR 62. cp 05/31 19:11 Order name: CBC with Diff; Complete Time: 20:05 cp 05/31 20:05 Interpretation: Normal except: RBC 4.99; MCV 79.1; MCH 26.3; MPV 6.6; PAWAN% 76.1; LYM% cp 15.0. 05/31 19:11 Order name: ETOH Level; Complete Time: 20:05 cp 05/31 19:11 Order name: Hepatic Function; Complete Time: 20:05 cp 05/31 20:12 Interpretation: Normal except: BILIT 1.9; BILID 0.5. cp 05/31 19:11 Order name: PT-INR; Complete Time: 20:05 cp 05/31 19:11 Order name: Ptt, Activated; Complete Time: 20:05 cp 05/31 19:11 Order name: Salicylate; Complete Time: 20:05 cp 05/31 19:11 Order name: Urine Drug Screen; Complete Time: 20:27 cp 05/31 19:54 Order name: Urine Microscopic Only; Complete Time: 20:27 em1 05/31 20:27 Interpretation: Normal except: UWBC 5-10; URBC 5-10. cp 05/31 19:54 Order name: Urine Dipstick--Ancillary (enter results); Complete Time: 20:12 em1 05/31 20:12 Interpretation: Normal except: UBLD 2+; UPROT 1+; UESTR TRACE. cp 05/31 20:28 Order name: Urine Culture EDMS 05/31 23:31 Order name: Potassium; Complete Time: 01:17 cp 06/01 01:17 Interpretation: Abnormal: K 2.6. cp 06/01 05:58 Order name: Potassium; Complete Time: 07:25 tl2 05/31 19:11 Order name: EKG; Complete Time: 19:12 cp 05/31 19:11 Order name: EKG - Nurse/Tech; Complete Time: 19:28 cp 05/31 19:11 Order name: IV Saline Lock; Complete Time: 19:28 cp 05/31 19:11 Order name: Labs collected and sent; Complete Time: 19:28 cp 05/31 19:11 Order name: Urine Dipstick-Ancillary (obtain specimen); Complete Time: 06:24 cp 06/01 08:06 Order name: Clear Liquid EDMS 06/01 11:51 Order name: RAD; Complete Time: 13:11 EDMS EC/06 19:39 Rate is 92 beats/min. Rhythm is regular. FL interval is normal. QRS interval is normal. cp QT interval is prolonged at 430 msec. Interpreted by me. Reviewed by me. Administered Medications: 20:11 Drug: Potassium Effervescent Tablet 50 mEq Route: PO; tl1 06/01 00:44 Follow up: Response: No adverse reaction tl1 05/31 20:11 Drug: Potassium Chloride 20 mEq Route: IV; Rate: calculated rate; Site: left tl1 antecubital; 21:15 Follow up: IV Status: Completed infusion tl1 20:12 Drug: NS 0.9% 500 ml Route: IV; Rate: bolus; Site: left antecubital; tl1 21:00 Follow up: IV Status: Completed infusion tl1 06/01 00:50 Drug: Ativan 1 mg Route: PO; tl1 04:30 Follow up: Response: No adverse reaction; No change in condition tl1 02:26 Drug: Potassium Chloride 20 mEq Route: IV; Rate: calculated rate; Site: right upper arm;tl1 04:30 Follow up: IV Status: Completed infusion tl1 03:23 Drug: Potassium Chloride 40 mEq Route: PO; tl1 04:30 Follow up: Response: No adverse reaction; No change in condition tl1 07:34 Drug: Potassium Chloride 40 mEq Route: PO; ph 10:08 Follow up: Response: No adverse reaction la1 07:34 Drug: Potassium Chloride 20 mEq Route: IV; Rate: calculated rate; Site: PICC; ph 10:08 Follow up: IV Status: Infusion continued upon admission la1 Disposition: 07:28 Co-signature as Attending Physician, Edmundo Castro MD I agree with the assessment and tw4 plan of care. Disposition: 06/01/17 07:27 Hospitalization ordered by Masoud Chowdhury for Inpatient Admission. Preliminary diagnosis are Suicidal ideations, Unspecified psychosis not due to a substance or known physiological condition, Hypokalemia. - Bed requested for Intensive Care Unit. - Status is Inpatient Admission. la1 - Condition is Stable. - Problem is an ongoing problem. - Symptoms are unchanged. UTI on Admission? No Signatures: Dispatcher [employer] EDMS Yolis Mensah RN Harry Patton MD MD cha Attema, Lee RN RN la1 Jaylin Grajeda RN RN tl1 Christine Espinosa RN RN Harry Feldman PA PA cp Baxter, Heather, RN RN hb Wadley, Terrence, MD MD tw4 Corrections: (The following items were deleted from the chart) 05/31 20:05 20:05 Normal except: K 2.5; CL 97; CO2 32. cp cp 06/01 03:05 05/31 19:40 Abdomen/GI: Inspection: abdomen appears normal, Bowel sounds: active, all cp quadrants, Palpation: abdomen is soft and non-tender, in all quadrants, rebound tenderness, is not appreciated, voluntary guarding, is not appreciated, involuntary guarding, is not appreciated, cp
[2017-06-01] MEDS ORDERED: ONDANSETRON 4 MG/2 ML VIAL IV PRN (08:03)
[2017-06-01] MEDS ORDERED: ACETAMINOPHEN 500 MG TAB PO PRN (08:03)
--- NOTE | 2017-06-01 11:50 | RAD REPORT ---
EXAM DESCRIPTION: RAD - Chest Single View - 06/01/2017 10:45 am CLINICAL HISTORY: Chest pain. COMPARISON: 11/24/2016 FINDINGS: Portable technique limits examination quality. The lungs are grossly clear. The heart is normal in size. No displaced fractures. IMPRESSION: No acute intrathoracic process suspected.
--- NOTE | 2017-06-01 12:04 | EKG ---
Test Date: 2017-05-31 Test Time: 19:30:42 Deaf Teacher: GABBIE MEASUREMENT RESULTS: Intervals: Rate: 92 KS: 160 QRSD: 80 QT: 430 QTc: 531 [place]: P: 85 KS: 160 QRS: 72 T: 71 INTERPRETIVE STATEMENTS: Normal sinus rhythm Minimal voltage criteria for LVH, may be normal variant Prolonged QT Abnormal ECG Compared to ECG 04/29/2017 05:46:49 Sinus tachycardia no longer present Atrial abnormality no longer present Electronically Signed On 06-01-17 12:03:36 CDT by Beltran Guevara
[2017-06-01] MEDS: NA CHLORIDE 0.9% 1,000 ML IV SCH ×2 (13:46→20:23)
[2017-06-01] MEDS: CEFTRIAXONE/SWI 1gm 1 GM/10 ML SYR IV SCH (13:52)
[2017-06-01] MEDS ORDERED: HALOPERIDOL LACT 5 MG/ML INJ IV PRN ×2 (18:48→19:30)
[2017-06-01] MEDS ORDERED: DIPHENHYDRAMINE 50 MG/ML VIAL IV ONE (19:00)
--- NOTE | 2017-06-01 21:10 | HP ---
Date of Admission: 06/01/2017 Chief Complaint: Hallucinations, suicidal ideation. Code Status: Full. History Of Present Illness: The patient is a 62-year-old female with past medical history of colon c ancer, status post colostomy, chronic pain syndrome, rectovaginal fistula, status post urostomy, anem ia, anxiety who was in her usual state of health until the day prior to admission when the patient wa s brought into the ER for hallucination. It should be noted that the history is limited due to the p atient's medical condition and is largely supplemented from previous records and the ER staff. No fa yisel present at the bedside. The patient does not have a history of previous psychiatric conditions. No chest pain, fever, chills, shortness of breath, nausea, or vomiting. The patient was found to h ave a very low potassium 2.5, which was replaced and initially patient was doing better. However, th en the patient reported that she has intentions of hurting herself, however does not have any specifi c plan. Therefore, the patient was referred for admission. Her other workup including a UDS was neg ative. Her UA was equivocal. The patient's symptoms are constant, moderate, and progressively worse mami. No alleviating or aggravating factors. The patient was seen in the ER, she was asleep and dif ficult to arouse and gave inconsistent history, falling back asleep. She did not appear to be in any acute distress. Past Medical History: Chronic pain syndrome, colon cancer, rectovaginal fistula, anemia, anxiety. Surgical History: Urostomy, colostomy, hysterectomy. Allergies: TO ASPIRIN, WHICH CAUSES A RASH. Medications: Reviewed. Social History: The patient lives by herself. Has 2 children. Family History: Father has colon cancer. Mother also has lung and liver cancer. Social History: The patient does not smoke, use alcohol or any illicit drugs. Review of Systems: Unable to be obtained due to patient's medical condition. Physical Examination: Vital Signs: Blood pressure 171/81, pulse 103, respirations 19, temperature 98.4, O2 100% on room ai r. General: Asleep, but arousable, confused, somewhat ill-appearing elderly female. HEENT: Normocephalic, atraumatic. PERRLA. EOMI. Dry mucous membranes. Oropharynx is clear. Poor dentition. Conjunctiva anicteric. Neck: Supple. No JVD. Trachea midline. CV: S1, S2. Regular rate and rhythm. No murmurs. Peripheral pulses present bilaterally. Respiratory: Moving air well. No wheezing. No stridor. No use of accessory muscles. Gastrointestinal: Abdomen is soft, nontender, nondistended. Positive bowel sounds. No guarding or rigidity. Colostomy and urostomy in place. Extremities: No clubbing, cyanosis, or edema. No calf tenderness. Neuro: Cranial nerves unable to be properly assessed due to patient's condition. However, grossly n o focal deficit. Muscle strength is 5/5 bilateral upper and lower extremities. Speech is normal. Skin: No rashes. Normal skin turgor. Psych: Deferred. Laboratory Data: WBC 5.6, H and H 13.1, 39.5, platelets 243. Neutrophils 73%. INR 1.05. Sodium 13 6, potassium 2.5 now after replacement is up to 3, chloride 97, CO2 32, BUN 16, creatinine 0.92, gluc ose 114. UA shows negative nitrite, trace leukocyte up to 10, rbc 5-10, wbc less than 20 bacteria. UDS negative for salicylates and acetaminophen. Serum alcohol level less than 10, otherwise complete ly negative. Urine culture shows 20,000 colony-forming units, 3+ gram-negative rods. Assessment And Plan: A 62-year-old female with: 1.Acute metabolic encephalopathy related to urinary tract infection versus acute psychosis. We will treat underlying condition and continue to monitor mental status. 2.Urinary tract infection with hematuria. Acute cystitis. We will start on Rocephin and follow up on ID and sensitivity from urine culture currently growing gram-negative ryan. 3.Acute psychosis. The patient having hallucinations and confused. UDS is negative. 4.Suicidal ideation. The patient will need a bedside sitter and suicide precautions and will have M R evaluate the patient once medically stable. 5.Hypokalemia. We will replace and monitor. We will obtain magnesium level. 6.Generalized anxiety disorder. 7.History of anemia, monitor H and H. 8.History of colon cancer status post colostomy. 9.Rectovaginal fistula status post urostomy. 10.Chronic pain syndrome. Plan: Admit the patient to ICU. Place as inpatient with remote cardiac telemetry. /DELTA Voice ID: [id number]
[2017-06-02] MEDS ORDERED: HALOPERIDOL LACT 5 MG/ML INJ IV ONE (02:29)
[2017-06-02] MEDS: NA CHLORIDE 0.9% 1,000 ML IV SCH ×2 (05:00→16:10)
[2017-06-02] MEDS: CEFTRIAXONE/SWI 1gm 1 GM/10 ML SYR IV SCH (09:07)
[2017-06-02] MEDS: PANTOPRAZOLE 40MG TABLET PO SCH (11:10)
[2017-06-02 14:38] LABS: Absolute Lymphocytes (CBC) 0.6 K/uL (0.7-4.9); Absolute Monocytes 0.3 K/uL (0.1-1.3); Absolute Neutrophil 3.2 K/uL (1.8-8.0); Basophils % 0.3 % (0-1.3); Eosinophils % 0.4 % (0-4.4); Lymphocytes % 14.8 % (15.3-44.8); MCH 26.4 pg (27.0-35.0); MCV 81.1 fL (80-100); RBC Red Blood Cell Count 4.44 M/uL (3.86-4.86)
[2017-06-02 14:48] LABS: ALT/SGPT 11 IU/L (10-60); AST/SGOT 22 IU/L (10-42); Albumin 3.7 g/dL (3.2-5.5); Alkaline Phosphatase 49 IU/L (42-121); BUN Blood Urea Nitrogen 8 mg/dL (6-20); Bicarbonate 28 mEq/L (21-31); Bilirubin Total 1.1 mg/dL (0.3-1.2); Glomerular Filtration Rate > 90 mL/min (=/>90); Glucose Level 97 mg/dL (65-120); Magnesium 1.7 mg/dL (1.8-2.5); Potassium 3.6 mEq/L (3.6-5.0); Protein, Total 6.5 g/dL (6.0-8.3); Sodium Level 139 mEq/L (135-145)
[2017-06-02] MEDS ORDERED: KCL 20 MEQ/100 mL IVPB 20 MEQ/100 ML BAG IV SCH (15:00)
[2017-06-02] MEDS: clonazePAM 1 MG TAB PO PRN ×2 (16:11→23:39)
[2017-06-02] MEDS ORDERED: MAGNESIUM SULFATE 1 gm IVPB 1 GM/100 ML BAG IV ONE (18:00)
--- NOTE | 2017-06-03 04:52 | DS ---
Admitting Diagnoses: 1. Acute metabolic encephalopathy. 2. Urinary tract infection with hematuria. 3. Acute psychosis. 4. Suicidal ideation. 5. Hypokalemia. 6. Generalized anxiety disorder. 7. History of anemia. 8. History of colon cancer status post colostomy. 9. Rectovaginal fistula status post urostomy. 10. Chronic pain syndrome. Discharge Diagnoses: 1. Acute metabolic encephalopathy, resolved. 2. Acute urinary tract infection, acute cystitis with hematuria secondary to gram-negative rods. 3. Acute psychosis, improved. 4. Suicidal ideation [facility] evaluation recommends inpatient psychiatric treatment. 5. Hypokalemia, replace and monitor. 6. Generalized anxiety disorder. 7. History of anemia. H and H stable. 8. History of colon cancer status post colostomy. 9. Rectovaginal fistula status post urostomy. 10. Chronic pain syndrome. Hospital Course: The patient is a 62-year-old female, who comes in with hallucinations and suicidal ideation. The patient was altered and she was found to have UTI secondary to gram-negative rods. The patient was also found to have electrolyte abnormalities. Her potassium was low which was replaced and was normalized. The patient's UDS was negative. She did receive multiple doses of Haldol and Benadryl to improve her agitation. The patient is on multiple psychiatric medications at home including Suboxone, clonazepam. The patient remained lethargic and somnolent throughout the course of the hospital stay, however, woke up. On the day of discharge, the patient was evaluated by [facility], who recommended inpatient psychiatric treatment. The patient was then cleared from medical standpoint to be transferred to [facility] once accepted in a fair condition. Activity: As tolerated. Medications: As per medication reconciliation list. Followup: Follow up with primary care physician in 1-2 weeks. Follow up with Psychiatry upon transfer. Return to ER for worsening condition. Total time spent discharging patient was 37 minutes. Physical Examination: General: Awake, alert, oriented, in no acute distress. CV: S1, S2. No murmurs. Regular rate and rhythm. Peripheral pulses present. Respiratory: Moving air well bilaterally. No wheezing. Abdomen: Soft, nontender, nondistended. Positive bowel sounds. Extremities: No clubbing, cyanosis, edema. Neurologic: Nonfocal. PSYCH: Mood is okay. Affect is flat. Insight and judgment are poor. SA/MODL Voice ID: [id number] Report ID: [id number] MILLER
[2017-06-03] MEDS: NA CHLORIDE 0.9% 1,000 ML IV SCH (05:01)
[2017-06-03] MEDS: PANTOPRAZOLE 40MG TABLET PO SCH (07:50)
[2017-06-03] MEDS: CEFTRIAXONE/SWI 1gm 1 GM/10 ML SYR IV SCH (08:46)
[2017-06-03] MEDS: DULOXETINE 30 MG CAP PO SCH (10:09)
[2017-06-03] MEDS: GABAPENTIN 300 MG CAP PO SCH ×2 (10:09→20:53)
[2017-06-03 10:28] LABS: Absolute Lymphocytes (CBC) 0.6 K/uL (0.7-4.9); Absolute Monocytes 0.3 K/uL (0.1-1.3); Absolute Neutrophil 2.5 K/uL (1.8-8.0); Basophils % 0.9 % (0-1.3); Eosinophils % 2.3 % (0-4.4); Hematocrit 36.7 % (36.0-45.0); Lymphocytes % 17.8 % (15.3-44.8); MCH 25.9 pg (27.0-35.0); MPV 7.1 fL (7.6-11.3); Monocytes % 8.1 % (3.3-12.3); RBC Red Blood Cell Count 4.54 M/uL (3.86-4.86)
[2017-06-03 10:46] LABS: ALT/SGPT 10 IU/L (10-60); AST/SGOT 27 IU/L (10-42); Albumin 3.3 g/dL (3.2-5.5); Alkaline Phosphatase 48 IU/L (42-121); BUN Blood Urea Nitrogen 5 mg/dL (6-20); Bicarbonate 21 mEq/L (21-31); Bilirubin Total 0.6 mg/dL (0.3-1.2); Glomerular Filtration Rate > 90 mL/min (=/>90); Glucose Level 182 mg/dL (65-120); Magnesium 1.8 mg/dL (1.8-2.5); Potassium 3.2 mEq/L (3.6-5.0); Protein, Total 5.8 g/dL (6.0-8.3); Sodium Level 135 mEq/L (135-145)
--- NOTE | 2017-06-03 18:34 | P.PN ---
Date of Service: 06/03/17 Patient still pending a psych med at this time. [facility] once a bed becomes available patient will be transferred to [facility] at this time. No new changes from yesterday. Patient is currently voluntarily accepting of inpatient psych services.
[2017-06-03] MEDS: clonazePAM 1 MG TAB PO PRN (20:54)
[2017-06-03] MEDS: SUBOXONE SL SCH ×2 (21:00→23:46)
[2017-06-04 05:40] LABS: BUN Blood Urea Nitrogen 6 mg/dL (6-20); Glomerular Filtration Rate > 90 mL/min (=/>90); Glucose Level 99 mg/dL (65-120); Magnesium 1.8 mg/dL (1.8-2.5)
[2017-06-04 05:41] LABS: Bicarbonate 28 mEq/L (21-31); Sodium Level 139 mEq/L (135-145)
[2017-06-04 05:42] LABS: Potassium 2.9 mEq/L (3.6-5.0)
[2017-06-04 05:45] VITALS: BMI 18.1
[2017-06-04] MEDS ORDERED: MAGNESIUM SULFATE 1 gm IVPB 1 GM/100 ML BAG IV ONE (05:48)
[2017-06-04] MEDS: KCL 20 MEQ/100 mL IVPB 20 MEQ/100 ML BAG IV SCH ×3 (06:19→11:17)
[2017-06-04] MEDS ORDERED: NA CHLORIDE 0.9% 500 ML ONE (06:21)
[2017-06-04] MEDS: PANTOPRAZOLE 40MG TABLET PO SCH (07:44)
[2017-06-04] MEDS ORDERED: AMOX/K CLAV 500 MG TAB PO SCH ×2 (09:00→21:00)
[2017-06-04] MEDS: SUBOXONE SL SCH (09:00)
[2017-06-04 09:13] VITALS: O2SAT 97
[2017-06-04] MEDS: DULOXETINE 30 MG CAP PO SCH (09:24)
[2017-06-04] MEDS: clonazePAM 1 MG TAB PO PRN ×2 (09:24→15:45)
[2017-06-04] MEDS: GABAPENTIN 300 MG CAP PO SCH (09:24)
--- NOTE | 2017-06-04 12:20 | P.PN ---
Date of Service: 06/04/17 Patient still pending a psych Bed at this time. [facility] has accepted the patient once a bed becomes available patient will be transferred to [facility] at this time. No new changes from yesterday. Patient is currently voluntarily accepting of inpatient psych services. Currently is not Suicidal.
[2017-06-04 14:56] VITALS: BP 126/69
[2017-06-04 16:00] VITALS: TEMP 98.4
== END 2017-06-04 15:50 | DRG 689 ==
LOC: ER 18:01 → ERHOLD 06-01 08:25 → 3RD-ICU 06-01 12:46
PROVIDERS: ADMIT Family Medicine; ATTEND Family Medicine
DX: N30.91 Cystitis, unspecified with hematuria (principal); G93.41 Metabolic encephalopathy; F23 Brief psychotic disorder; R45.851 Suicidal ideations; E87.6 Hypokalemia; F41.1 Generalized anxiety disorder; G89.29 Other chronic pain; Z85.038 Personal history of other malignant neoplasm of large intestine
CPT/HCPCS: 36415; 71045; 80048; 80053; 80076; 80307; 80320; 80329; 81003; 81015; 83735; 84132; 85025; 85610; 85730; 87077; 87086; 87088; 87186; 93005; 94760; J0696; J1630; J3475; J7030